=== PATIENT | female | born 2000 | race Caucasian/White ===

== ENCOUNTER 2022-10-09 14:54 | Observation (INO) | payer OTHER, MEDICAID, SELFPAY ==
[2022-10-09] VITALS (29 sets, daily range): BP systolic 107–131; BP diastolic 62–80; PULSE 72–85; RESP 16–27; TEMP 36.6–37.2; O2SAT 97–100; BMI 20.1
--- NOTE | 2022-10-09 15:17 | ED.GENADULT ---
HPI - General Adult General Chief complaint: Diabetic Problem Stated complaint: blood sugar is over 500 Time Seen by Provider: 10/09/22 14:58 Source: patient Mode of arrival: Ambulatory Limitations: no limitations History of Present Illness HPI narrative: Patient is a 21-year-old otherwise healthy female who was sent over from the walk-in clinic for evaluation of a new onset of diabetes. Patient states that since 09/29/22. She is had thirst, increased urination and fatigue. She denies chest pain, shortness of breath, abdominal pain, nausea vomiting, urinary symptoms, change in bowel habits. She is an increase in the mouth that she is urinating but has no dysuria. No vomiting. No skin rashes. No recent travel. No fevers. No source of infection identified. Related Data Home Medications Medication Instructions Recorded Confirmed calcium acetate(phosphat bind) 667 ##0 03/07/17 mg capsule cholecalciferol (vitamin D3) 25 30 ml sublingual ##0 03/07/17 mcg/spray(1,000 unit/spray) subling spray, susp methylphenidate HCl 20 mg tablet 20 mg PO ##0 03/07/17 (Ritalin) Previous Rx's Medication Instructions Recorded nortriptyline 10 mg capsule 10 mg PO HS #30 caps 03/07/17 blood sugar diagnostic (Accu-Chek #50 ea 10/09/22 Guide test strips) blood-glucose meter (Accu-Chek #1 ea 10/09/22 Guide Glucose Meter) insulin glargine 100 unit/mL (3 10 unit (0.1 mL) SUBCUT QPM #15 mL 10/09/22 mL) subcutaneous pen (Lantus Solostar U-100 Insulin) lancets 26 gauge #100 ea 10/09/22 metformin 500 mg tablet 500 mg PO BID #90 tabs 10/09/22 pen needle, diabetic 31 gauge x #50 ea 10/09/2204/12 (1st Tier Unifine Pentips) Allergies Allergy/AdvReac Type Severity Reaction Status Date / Time fluoxetine AdvReac Nightmare Verified 10/09/22 15:42 Review of Systems Review of Systems ROS Unobtainable: All systems reviewed & are unremarkable except as noted in HPI and below Patient History Social History Smoking Status: Never smoker Exam Initial Vital Signs Initial Vital Signs: Vital Signs Pulse Rate 79 10/09/22 15:13 Blood Pressure 131/63 10/09/22 15:13 Pulse Oximetry 98 10/09/22 15:13 Const General: cooperative, comfortable and No ill appearing HENNH Head: normal to inspection and normocephalic Resp Effort & Inspection: normal respiratory effort Auscultation: clear to auscultation bilaterally Cardio Rate: regular rate Rhythm: regular rhythm GI Inspection: normal to inspection Skin General: no rashes or lesions noted Neuro General: patient alert, patient awake, patient oriented x3 and moves all extremities Extrem General: capillary refill normal Course Orders Ordered: ED Orders 10/09/22 15:25 Complete Blood Count AUTO DIFF Stat Comprehensive Metabolic Panel Stat Ketones (Beta-Hydroxybutyrate) Stat Lipase Stat Magnesium Stat Phosphorous Stat Test Serum,Qual Stat 10/09/22 15:41 VBG [Venous Blood Gas] Stat 10/09/22 16:04 Urinalysis and Microscopic Stat Urine Culture Stat Urine Drug Screen, Rapid Stat Discontinued Medications Sodium Chloride (Normal Saline 0.9%) 1,000 mls @ 1,000 mls/hr IV BOLUS ONE Stop: 10/09/22 15:57 Last Infusion: 10/09/22 16:46 Dose: 0 mls/hr Documented By: Admin: 10/09/22 15:42 Dose: 1,000 mls/hr Documented By: SOL Sodium Chloride (Normal Saline 0.9%) 1,000 mls @ 1,000 mls/hr IV BOLUS ONE Stop: 10/09/22 17:47 Last Infusion: 10/09/22 18:16 Dose: 0 mls/hr Documented By: Admin: 10/09/22 17:12 Dose: 1,000 mls/hr Documented By: SOL Insulin Glargine (Insulin Glargine 100 Unit/Ml 3ml Pen) 10 unit SUBCUT BEDTIME [facility] Insulin Glargine (Insulin Glargine 100 Unit/Ml 3ml Pen) 10 unit SUBCUT NOW ONE Stop: 10/09/22 17:08 Last Admin: 10/09/22 17:26 Dose: 10 unit Documented By: SOL Co-signed By: AT Metformin HCl (Metformin Hcl 500 Mg Tablet) 500 mg PO NOW ONE Stop: 10/09/22 16:49 Last Admin: 10/09/22 17:12 Dose: 500 mg Documented By: SOL Vital Signs Vital signs: Vital Signs - 8 hr 10/09/22 15:15 10/09/22 15:13 10/09/22 15:13 Temperature 97.8 F Pulse Rate 72 79 Respiratory Rate 18 Blood Pressure 131/63 131/63 Pulse Oximetry 99 98 Oxygen Delivery Method Room Air 10/09/22 15:15 10/09/22 15:30 10/09/22 15:45 Temperature Pulse Rate 82 75 Respiratory Rate 27 H Blood Pressure 113/69 Pulse Oximetry 98 98 Oxygen Delivery Method 10/09/22 15:45 10/09/22 16:15 10/09/22 16:30 Temperature Pulse Rate 81 82 84 Respiratory Rate 25 H 16 17 Blood Pressure Pulse Oximetry 97 99 99 Oxygen Delivery Method Room Air 10/09/22 16:36 10/09/22 16:36 10/09/22 16:45 Temperature Pulse Rate 82 74 Respiratory Rate 24 19 Blood Pressure 112/72 Pulse Oximetry 99 100 Oxygen Delivery Method 10/09/22 17:16 10/09/22 17:16 10/09/22 17:30 Temperature Pulse Rate 75 73 Respiratory Rate Blood Pressure 113/73 Pulse Oximetry 100 99 Oxygen Delivery Method 10/09/22 17:45 10/09/22 18:00 Temperature Pulse Rate 84 75 Respiratory Rate Blood Pressure Pulse Oximetry 100 Oxygen Delivery Method Medical Decision Making Lab Data Lab results reviewed: Yes I reviewed the patient's lab results. 10/09/22 15:25 10/09/22 15:25 Labs: Lab Results 10/09/22 10/09/22 10/09/22 Range/Units 15:25 15:25 15:25 WBC 8.2 (4.5-11.0) X10^3/uL RBC 5.56 H (4.0-5.2) X10^6/uL Hgb 15.5 (12.0-16.0) g/dL Hct 45.5 (36-46) % MCV 81.7 (80-100) fL MCH 27.8 (26-34) PG MCHC 34.0 (30-36) % RDW 12.5 (11.6-14.8) % Plt Count 252 (150-400) X10^3/uL Neut % (Auto) 63.0 (50-75) % Lymph % (Auto) 27.8 (25-40) % [place] % (Auto) 6.6 (3-14) % Eos % (Auto) 2.2 (2-4) % Baso % (Auto) 0.4 (0-2) % Neut # (Auto) 5100 (6451-0527) /uL Lymph # (Auto) 2300 (8761-6064) /uL [place] # (Auto) 500 (0-900) /uL Eos # (Auto) 200 (0-450) /uL Baso # (Auto) 0 (0-100) /uL VBG pH (7.33-7.43) VBG pCO2 (45-50) mmHg VBG pO2 (35-45) mmHg VBG HCO3 (24-28) mmol/L VBG Total CO2 (24-29) mmol/L VBG O2 Saturation (70-75) % VBG Base Excess (0-4) mmol/L FiO2 Sodium 127 L (137-145) mmol/L Potassium 4.3 (3.4-5.1) mmol/L Chloride 94 L (98-107) mmol/L Carbon Dioxide 17 L (22-32) mmol/L BUN 15 (7-17) mg/dL Creatinine 0.66 (0.52-1.04) mg/dL Estimated GFR > 60 (>60) mL/min BUN/Creatinine Ratio 22.7 H (6-22) Glucose 726 H* (70-100) mg/dL Calcium 9.2 (8.4-10.2) mg/dL Phosphorus 3.6 L (4.5-5.5) mg/dL Magnesium 1.8 (1.6-2.3) mg/dL Total Bilirubin 0.8 (0.2-1.3) mg/dL AST 22 (14-36) IU/L ALT 35 H (<35) IU/L Alkaline Phosphatase 188 H (38-126) U/L Total Protein 7.7 (6.3-8.2) g/dL Albumin 4.6 (3.5-5.0) g/dL Globulin 3.1 (1.7-4.1) g/dL Albumin/Globulin Ratio 1.5 (1.0-2.8) Lipase 183 (23-300) U/L Serum , Qual Negative (Negative) Urine Color Urine Appearance Urine pH (4.5-8.0) Ur Specific [place] (1.000-1.035) Urine Protein (Negative) Urine Glucose (UA) (Negative) g/dL Urine Ketones (NEGATIVE) Urine Occult Blood (Negative) Urine Nitrate (Negative) Urine Bilirubin (NEGATIVE) Urine Urobilinogen (0.2) E.U./dL Ur Leukocyte Esterase (NEGATIVE) Urine RBC (0-5/HPF) Urine WBC (0-5/HPF) Ur Squamous Epith Cells (0-5/HPF) Urine Bacteria (None) U Opiates 300ng/mL cut (Negative) Ur Oxycodone Screen (Negative) Urine Methadone Screen (Negative) Ur Barbiturates Screen (Negative) U Tricyclic Antidepress (Negative) Ur Phencyclidine Scrn (Negative) Ur Amphetamines Screen (Negative) U Methamphetamines Scrn (Negative) Ur MDMA Scrn (Ecstasy) (Negative) U Benzodiazepines Scrn (Negative) Urine Cocaine Screen (Negative) U Marijuana (THC) Screen (Negative) Ketones 3.17 H (<0.27) mmol/L 10/09/22 10/09/22 10/09/22 Range/Units 15:41 16:04 16:04 WBC (4.5-11.0) X10^3/uL RBC (4.0-5.2) X10^6/uL Hgb (12.0-16.0) g/dL Hct (36-46) % MCV (80-100) fL MCH (26-34) PG MCHC (30-36) % RDW (11.6-14.8) % Plt Count (150-400) X10^3/uL Neut % (Auto) (50-75) % Lymph % (Auto) (25-40) % [place] % (Auto) (3-14) % Eos % (Auto) (2-4) % Baso % (Auto) (0-2) % Neut # (Auto) (9191-8677) /uL Lymph # (Auto) (5754-3496) /uL [place] # (Auto) (0-900) /uL Eos # (Auto) (0-450) /uL Baso # (Auto) (0-100) /uL VBG pH 7.34 (7.33-7.43) VBG pCO2 33.9 L (45-50) mmHg VBG pO2 51 H (35-45) mmHg VBG HCO3 19 L (24-28) mmol/L VBG Total CO2 19 L (24-29) mmol/L VBG O2 Saturation 84 H (70-75) % VBG Base Excess -7.0 L (0-4) mmol/L FiO2 20 Sodium (137-145) mmol/L Potassium (3.4-5.1) mmol/L Chloride (98-107) mmol/L Carbon Dioxide (22-32) mmol/L BUN (7-17) mg/dL Creatinine (0.52-1.04) mg/dL Estimated GFR (>60) mL/min BUN/Creatinine Ratio (6-22) Glucose (70-100) mg/dL Calcium (8.4-10.2) mg/dL Phosphorus (4.5-5.5) mg/dL Magnesium (1.6-2.3) mg/dL Total Bilirubin (0.2-1.3) mg/dL AST (14-36) IU/L ALT (<35) IU/L Alkaline Phosphatase (38-126) U/L Total Protein (6.3-8.2) g/dL Albumin (3.5-5.0) g/dL Globulin (1.7-4.1) g/dL Albumin/Globulin Ratio (1.0-2.8) Lipase (23-300) U/L Serum , Qual (Negative) Urine Color Yellow Urine Appearance Clear Urine pH 5.5 (4.5-8.0) Ur Specific [place] <=1.005 (1.000-1.035) Urine Protein Negative (Negative) Urine Glucose (UA) 3+ H (Negative) g/dL Urine Ketones 3+ H (NEGATIVE) Urine Occult Blood Trace-intact (Negative) Urine Nitrate Negative (Negative) Urine Bilirubin Negative (NEGATIVE) Urine Urobilinogen 0.2 (0.2) E.U./dL Ur Leukocyte Esterase Negative (NEGATIVE) Urine RBC 0-1/hpf (0-5/HPF) Urine WBC None seen (0-5/HPF) Ur Squamous Epith Cells None seen (0-5/HPF) Urine Bacteria None seen (None) U Opiates 300ng/mL cut Negative (Negative) Ur Oxycodone Screen Negative (Negative) Urine Methadone Screen Negative (Negative) Ur Barbiturates Screen Negative (Negative) U Tricyclic Antidepress Negative (Negative) Ur Phencyclidine Scrn Negative (Negative) Ur Amphetamines Screen Negative (Negative) U Methamphetamines Scrn Negative (Negative) Ur MDMA Scrn (Ecstasy) Negative (Negative) U Benzodiazepines Scrn Negative (Negative) Urine Cocaine Screen Negative (Negative) U Marijuana (THC) Screen Negative (Negative) Ketones (<0.27) mmol/L Urine Dip Bedside Urine Glucose 1000 mg/dl Bedside Urine Bilirubin - Negative Bedside Urine Ketone +++ 80 Urine Specific [place] 1.010 Bedside Urine Occult Blood - Negative Bedside Urine pH 6.0 Bedside Urine Protein - Negative Bedside Urine Urobilinogen - Negative Bedside Urine Nitrite - Negative Bedside Urine Leukocytes - Negative Esterase Point of care testing: Urine Dip Bedside Urine Glucose 1000 mg/dl Bedside Urine Bilirubin - Negative Bedside Urine Ketone +++ 80 Urine Specific [place] 1.010 Bedside Urine Occult Blood - Negative Bedside Urine pH 6.0 Bedside Urine Protein - Negative Bedside Urine Urobilinogen - Negative Bedside Urine Nitrite - Negative Bedside Urine Leukocytes - Negative Esterase MDM Narrative Medical decision making narrative: Patient is diabetic with hyperglycemia but is not in DKA. Her pH is 7.344. She does have ketones in her urine. Has been urinating quite a bit recently. Patient has been receiving fluids. She also received metformin and Lantus. No source of infection found. Her test is negative. She is in the process of obtaining a new primary doctor but does not have this currently. Metformin and Lantus and monitoring equipment has been ordered. Plan to be is to continue to hydrate until her blood sugar has improved. Care turned over to Dr. Valenzuela to follow-up and disposition. Discharge Plan Departure Patient Disposition: Home Clinical Impression: Diabetes mellitus Prescriptions: New metformin 500 mg tablet 500 mg PO BID Qty: 90 2RF insulin glargine [Lantus Solostar U-100 Insulin] 100 unit/mL (3 mL) insulin pen 10 unit SUBCUT QPM Qty: 15 2RF (DME) Accu-Chek Guide test strips Strip See Rx Instructions .Route Qty: 50 2RF Rx Instructions: As directed (DME) blood-glucose meter [Accu-Chek Guide Glucose Meter] Misc See Rx Instructions .Route Qty: 1 0RF Rx Instructions: As directed (DME) lancets 26 gauge misc See Rx Instructions .Route Qty: 100 2RF Rx Instructions: As directed (DME) pen needle, diabetic [1st Tier Unifine Pentips] 31 gauge x 1/4 needle See Rx Instructions .Route Qty: 50 2RF Rx Instructions: As directed No Action nortriptyline 10 MG capsule 10 mg PO HS Qty: 30 11RF calcium acetate(phosphat bind) 667 MG capsule Qty: 0 cholecalciferol (vitamin D3) 30 ML spray,suspension 30 ml Sublingual Qty: 0 methylphenidate HCl [Ritalin] 20 MG tablet 20 mg PO Qty: 0 Stand Alone Forms: Patient Portal/API
[2022-10-09 15:32] LABS: Add Manual Diff / Slide Review NO; Basophils Absolute Auto 0 /uL (0-100); Basophils Percent Auto 0.4 % (0-2); Eosinophils Absolute Auto 200 /uL (0-450); Eosinophils Percent Auto 2.2 % (2-4); Hematocrit 45.5 % (36-46); Hemoglobin 15.5 g/dL (12.0-16.0); Lymphocytes Absolute Auto 2300 /uL (1100-4500); Lymphocytes Percent Auto 27.8 % (25-40); Mean Corpuscular Hemoglobin 27.8 PG (26-34); Mean Corpuscular Volume 81.7 fL (80-100); Monocytes Absolute Auto 500 /uL (0-900); Monocytes Percent Auto 6.6 % (3-14); Neutrophils Absolute Auto 5100 /uL (1500-7000); Platelet Count 252 X10^3/uL (150-400); Red Blood Cell Count 5.56 X10^6/uL (4.0-5.2); Red Cell Distribution Width 12.5 % (11.6-14.8); White Blood Cell Count 8.2 X10^3/uL (4.5-11.0)
[2022-10-09] MEDS: SODIUM CHLORIDE 0.9% 1,000 ML 1000 ML IV ×3 (15:42→19:29)
[2022-10-09 15:51] LABS: Alanine Aminotransferase 35 IU/L (<35); Albumin 4.6 g/dL (3.5-5.0); Albumin Globulin Ratio 1.5 (1.0-2.8); Alkaline Phosphatase 188 U/L (38-126); Aspartate Aminotransferase 22 IU/L (14-36); BUN Creatinine Ratio 22.7 (6-22); Bilirubin Total 0.8 mg/dL (0.2-1.3); Blood Urea Nitrogen 15 mg/dL (7-17); Calcium 9.2 mg/dL (8.4-10.2); Carbon Dioxide 17 mmol/L (22-32); Chloride 94 mmol/L (98-107); Estimated Glomerular Filt Rate > 60 mL/min (>60); Globulin 3.1 g/dL (1.7-4.1); Lipase 183 U/L (23-300); Magnesium 1.8 mg/dL (1.6-2.3); Phosphorous 3.6 mg/dL (4.5-5.5); Potassium 4.3 mmol/L (3.4-5.1); Sodium 127 mmol/L (137-145); Total Protein 7.7 g/dL (6.3-8.2)
[2022-10-09 15:53] LABS: Pregnancy Test Serum,Qual Negative (Negative)
[2022-10-09 15:55] LABS: PCO2 VBG 33.9 mmHg (45-50); PO2 VBG 51 mmHg (35-45)
[2022-10-09 15:56] LABS: Fractionated Inspired Oxygen 20; HCO3 VBG 19 mmol/L (24-28); Oxygen Saturation VBG 84 % (70-75); Total CO2 VBG 19 mmol/L (24-29)
[2022-10-09 15:57] LABS: pH VBG 7.34 (7.33-7.43)
[2022-10-09 15:58] LABS: Ketones (Beta-Hydroxybutyrate) 3.17 mmol/L (<0.27)
[2022-10-09 16:00] LABS: HEMOLYSIS < 15 (0-50)
[2022-10-09 16:04] LABS: Glucose 726 mg/dL (70-100)
[2022-10-09 16:19] LABS: Appearance Urine UA CLEAR; Bilirubin Urine UA NEGATIVE (NEGATIVE); Color Urine UA YELLOW; Glucose Urine UA 3+ g/dL (Negative); Ketones Urine UA 3+ (NEGATIVE); Leukocyte Esterase Urine UA NEGATIVE (NEGATIVE); Nitrite Urine UA NEGATIVE (Negative); Occult Blood Urine UA TRACE-INTACT (Negative); Protein Urine UA NEGATIVE (Negative); Specific Gravity Urine UA <=1.005 (1.000-1.035); Urobilinogen Urine UA 0.2 E.U./dL (0.2)
[2022-10-09 16:21] LABS: pH Urine UA 5.5 (4.5-8.0)
[2022-10-09 16:24] LABS: Ur Creatinine Normal (Normal); Ur Specific Gravity Normal (Normal); Urine pH Normal (Normal)
[2022-10-09 16:25] LABS: UR Morphine/Opiate cutoff 300 Negative (Negative); Urine Amphetamines Negative (Negative); Urine Barbiturates Negative (Negative); Urine Benzodiazepines Negative (Negative); Urine Cocaine Negative (Negative); Urine MDMA Negative (Negative); Urine Methadone Negative (Negative); Urine Methamphetamines Negative (Negative); Urine Oxycodone Negative (Negative); Urine Phencyclidine Negative (Negative); Urine Tetrahydrocannabinol Negative (Negative); Urine Tricyclic Antidepressant Negative (Negative)
[2022-10-09 16:26] LABS: Bacteria Urine None Seen; RBC Urine 0-1/HPF (0-5/HPF); Squamous Epithelial Cell Urine None Seen (0-5/HPF); WBC Urine None Seen (0-5/HPF)
[2022-10-09] MEDS: METFORMIN HCL 500 MG TABLET PO (17:12)
[2022-10-09] MEDS: INSULIN GLARGINE 100 UNIT/ML 3ML PEN 10 UNIT SUBCUT (17:26)
--- NOTE | 2022-10-09 19:24 | PC.NURSE ---
Patient and close friend received extensive new diabetic education. Teaching of glucometer, insulin injections, signs and symptoms, etc. All of patients questions were answered. [facility] was called in regards to getting patient her new medications in a timely manner, pharmacist states meds will be ready tomorrow morning @ 1000.
[2022-10-09 19:28] LABS: BUN Creatinine Ratio 19.3 (6-22); Blood Urea Nitrogen 11 mg/dL (7-17); Calcium 8.1 mg/dL (8.4-10.2); Carbon Dioxide 18 mmol/L (22-32); Chloride 103 mmol/L (98-107); Estimated Glomerular Filt Rate > 60 mL/min (>60); Glucose 389 mg/dL (70-100); HEMOLYSIS < 15 (0-50); Sodium 134 mmol/L (137-145)
[2022-10-09] MEDS: INSULIN REGULAR 100 UNIT/ML 3 ML VIAL SUBCUT (20:13)
--- NOTE | 2022-10-09 20:28 | PC.NURSE ---
gave patient a turkey sandwich.
--- NOTE | 2022-10-09 21:04 | DI.RAD.S_ITS ---
PROCEDURE: XR CHEST 2V INDICATIONS: DKA TECHNIQUE: 2 views of the chest were acquired. COMPARISON: None. FINDINGS: Surgical changes and devices: None. Lungs and pleura: Lungs are clear. No pleural effusions or pneumothorax. Mediastinum: Mediastinal contours are normal. Heart size is normal. Bones and chest wall: No suspicious bony abnormalities. Soft tissues appear unremarkable. IMPRESSION: 1. No acute cardiopulmonary disease. Dictated by: Ion Araya M.D. on 10/09/2022 at 23:46 Approved by: Ion Araya M.D. on 10/09/2022 at 23:47
[2022-10-09] MEDS: INSULIN DRIP PREMIX 100 UNIT/100 ML PLAST..BAG 6 UNIT IV (21:13)
--- NOTE | 2022-10-09 22:01 | P.HP_ITS ---
History of Present Illness History of Present Illness Date Patient Seen: 10/09/22 Time Patient Seen: 21:19 Chief complaint: DKA, new onset DM type I Narrative: Jazmin Couch is a 21-year-old female with a medical history of remote TBI, takes no medications who presented to the ED with an initial blood sugar of 726 with complaints of polyuria, polydipsia, and fatigue. Patient was initially treated in the ED with 3 units of R insulin, 20 units of Lantus, and fluids. On admit patient denies chest pain, shortness in breath, headache, changes in vision, difficulty swallowing, speech impairment, weakness, numbness, tingling, difficulty with ambulation, recent falls, head injury, LOC, fever, body aches, chills, cough, recent exposure to illness, abdominal pain, nausea, vomiting, urinary incontinence/retention, dysuria, urgency, hematuria, bowel changes, con stipation, incontinence, melena, rashes, recent changes to medication, illness, injury, or trauma. Patient denies recent weight loss, blurry vision, family or personal history of autoimmune disease or liver Dz (Adopted). On admit vitals are stable, with the exception of mild tachypnea temp 97.8?, 129/80, 85, 25, 98% on room air. VBG is pH 7.34, pCO2 33.9, PO2 51, HC03 19, TCO2 19, O2 saturation 84%, BE -7, FiO2 20. Sodium 134, bicarb 18. Creatinine BUN and GFR are normal, potassium 4. Initial glucose 726, repeat 1910:. 389. Anion gap: 16, serum ketones 3.17, calcium 8.1, phosphorus 3.6, magnesium 1.8, alk-phos 188. Urine is negative for infection positive glucose 3+, ketones 3+-culture pending. HCG negative, tox screen negative. Patient admitted for DKA/new onset type 1 diabetes. [facility] Medical History (Updated 10/09/22 @ 22:59 by CARLOTA Gorman) ADHD Closed TBI (traumatic brain injury) Surgical History (Updated 10/09/22 @ 22:59 by CARLOTA Gorman) History of wisdom tooth extraction Family History (Updated 10/09/22 @ 22:59 by CARLOTA Gorman) Other Adopted Social History (Updated 10/09/22 @ 22:59 by Sadie Leon [facility]) household members: family Smoking Status: Never smoker alcohol intake: never substance use type: does not use Meds Home Medications and Allergies Home Medications Medication Instructions Recorded Confirmed Type calcium acetate(phosphat bind) 667 ##0 03/07/17 History mg capsule cholecalciferol (vitamin D3) 25 30 ml sublingual ##0 03/07/17 History mcg/spray(1,000 unit/spray) subling spray, susp methylphenidate HCl 20 mg tablet 20 mg PO ##0 03/07/17 History (Ritalin) nortriptyline 10 mg capsule 10 mg PO HS #30 caps 03/07/17 Rx blood sugar diagnostic (Accu-Chek #50 ea 10/09/22 Rx Guide test strips) blood-glucose meter (Accu-Chek #1 ea 10/09/22 Rx Guide Glucose Meter) insulin glargine 100 unit/mL (3 10 unit (0.1 mL) SUBCUT QPM #15 mL 10/09/22 Rx mL) subcutaneous pen (Lantus Solostar U-100 Insulin) lancets 26 gauge #100 ea 10/09/22 Rx metformin 500 mg tablet 500 mg PO BID #90 tabs 10/09/22 Rx pen needle, diabetic 31 gauge x #50 ea 10/09/22 Rx 1/4 (1st Tier Unifine Pentips) Allergies Allergy/AdvReac Type Severity Reaction Status Date / Time fluoxetine AdvReac Nightmare Verified 10/09/22 15:42 Review of Systems Review of Systems Narrative: All 12 point systems reviewed with the patient and are negative except otherwise documented. Exam Vital Signs (past 8 hours): - 10/09/22 15:15 10/09/22 15:13 10/09/22 15:13 Temperature 97.8 F Pulse Rate 72 79 Respiratory Rate 18 Blood Pressure 131/63 131/63 Pulse Oximetry 99 98 Oxygen Delivery Method Room Air 10/09/22 15:15 10/09/22 15:30 10/09/22 15:45 Temperature Pulse Rate 82 75 Respiratory Rate 27 H Blood Pressure 113/69 Pulse Oximetry 98 98 Oxygen Delivery Method 10/09/22 15:45 10/09/22 16:15 10/09/22 16:30 Temperature Pulse Rate 81 82 84 Respiratory Rate 25 H 16 17 Blood Pressure Pulse Oximetry 97 99 99 Oxygen Delivery Method Room Air 10/09/22 16:36 10/09/22 16:36 10/09/22 16:45 Temperature Pulse Rate 82 74 Respiratory Rate 24 19 Blood Pressure 112/72 Pulse Oximetry 99 100 Oxygen Delivery Method 10/09/22 17:16 10/09/22 17:16 10/09/22 17:30 Temperature Pulse Rate 75 73 Respiratory Rate Blood Pressure 113/73 Pulse Oximetry 100 99 Oxygen Delivery Method 10/09/22 17:45 10/09/22 18:00 10/09/22 19:15 Temperature Pulse Rate 84 75 75 Respiratory Rate Blood Pressure Pulse Oximetry 100 100 Oxygen Delivery Method Room Air 10/09/22 19:30 10/09/22 19:45 10/09/22 20:02 Temperature Pulse Rate 73 75 73 Respiratory Rate Blood Pressure Pulse Oximetry 100 100 99 Oxygen Delivery Method 10/09/22 20:03 10/09/22 20:03 10/09/22 20:11 Temperature Pulse Rate 73 81 Respiratory Rate 19 Blood Pressure 117/79 Pulse Oximetry 100 98 Oxygen Delivery Method 10/09/22 20:11 10/09/22 20:15 10/09/22 20:30 Temperature Pulse Rate 85 Respiratory Rate 25 H Blood Pressure 129/80 120/68 Pulse Oximetry 98 Oxygen Delivery Method Room Air 10/09/22 20:30 10/09/22 20:45 10/09/22 21:00 Temperature Pulse Rate 79 82 Respiratory Rate 17 16 Blood Pressure 110/63 Pulse Oximetry 100 99 Oxygen Delivery Method 10/09/22 21:00 10/09/22 21:15 10/09/22 21:30 Temperature Pulse Rate 85 81 Respiratory Rate 18 17 Blood Pressure 107/69 Pulse Oximetry 99 99 Oxygen Delivery Method 10/09/22 21:30 10/09/22 21:45 Temperature Pulse Rate 79 80 Respiratory Rate 21 20 Blood Pressure Pulse Oximetry 98 98 Oxygen Delivery Method Oxygen Delivery Method Room Air Narrative Exam Narrative: General: Patient is a well-developed, well-nourished in no distress at this time. HEENT: Normocephalic, atraumatic, extraocular muscles intact, oral pharynx is clear and mucous membranes are moist. Neck is supple and symmetric, trachea is midline, no adenopathy, no thyroid enlargement, nontender, no masses palpated. Negative for JVD Chest: Normal AP diameter and contour without kyphoscoliosis, Equal chest rise without nasal flaring, retractions, tachypneic or labored breathing. Lungs: Auscultation of all lung sibley are clear without adventitious sounds, wheezes, rhonchi, or rales. Cardio: regular rate and rhythm without murmur, rubs, or gallops, no carotid bruit, no cardiac pulsations present. Abdomen: Soft nontender, negative for organomegaly, or masses. Bowel sounds are present in all 4 quadrants without guarding or rebound, no CVA tenderness. Musculoskeletal: Muscle strength and tone are equal, no deformity, crepitus, effusions, cyanosis, clubbing or edema present. Full range of motion intact radial and pedal pulses are normal. Skin: Warm dry and intact without rashes, ulcerations or petechiae. Neuro: Alert and orientated x3, moves all extremities, sensation to touch intact, no gross deficits noted of cranial nerves. Psych: Patient has a well-kept appearance, appropriate affect, mental status attitude thought context and judgment are appropriate for age. Objective Labs 10/09/22 15:25 10/09/22 19:10 Labs: Laboratory Results - last 24 hr 10/09/22 10/09/22 10/09/22 15:25 15:25 15:25 WBC 8.2 RBC 5.56 H Hgb 15.5 Hct 45.5 MCV 81.7 MCH 27.8 MCHC 34.0 RDW 12.5 Plt Count 252 Neut % (Auto) 63.0 Lymph % (Auto) 27.8 [place] % (Auto) 6.6 Eos % (Auto) 2.2 Baso % (Auto) 0.4 Neut # (Auto) 5100 Lymph # (Auto) 2300 [place] # (Auto) 500 Eos # (Auto) 200 Baso # (Auto) 0 VBG pH VBG pCO2 VBG pO2 VBG HCO3 VBG Total CO2 VBG O2 Saturation VBG Base Excess FiO2 Sodium 127 L Potassium 4.3 Chloride 94 L Carbon Dioxide 17 L BUN 15 Creatinine 0.66 Estimated GFR > 60 BUN/Creatinine Ratio 22.7 H Glucose 726 H* Calcium 9.2 Phosphorus 3.6 L Magnesium 1.8 Total Bilirubin 0.8 AST 22 ALT 35 H Alkaline Phosphatase 188 H Total Protein 7.7 Albumin 4.6 Globulin 3.1 Albumin/Globulin Ratio 1.5 Lipase 183 Serum , Qual Negative Urine Color Urine Appearance Urine pH Ur Specific [place] Urine Protein Urine Glucose (UA) Urine Ketones Urine Occult Blood Urine Nitrate Urine Bilirubin Urine Urobilinogen Ur Leukocyte Esterase Urine RBC Urine WBC Ur Squamous Epith Cells Urine Bacteria U Opiates 300ng/mL cut Ur Oxycodone Screen Urine Methadone Screen Ur Barbiturates Screen U Tricyclic Antidepress Ur Phencyclidine Scrn Ur Amphetamines Screen U Methamphetamines Scrn Ur MDMA Scrn (Ecstasy) U Benzodiazepines Scrn Urine Cocaine Screen U Marijuana (THC) Screen Ketones 3.17 H 10/09/22 10/09/22 10/09/22 15:41 16:04 16:04 WBC RBC Hgb Hct MCV MCH MCHC RDW Plt Count Neut % (Auto) Lymph % (Auto) [place] % (Auto) Eos % (Auto) Baso % (Auto) Neut # (Auto) Lymph # (Auto) [place] # (Auto) Eos # (Auto) Baso # (Auto) VBG pH 7.34 VBG pCO2 33.9 L VBG pO2 51 H VBG HCO3 19 L VBG Total CO2 19 L VBG O2 Saturation 84 H VBG Base Excess -7.0 L FiO2 20 Sodium Potassium Chloride Carbon Dioxide BUN Creatinine Estimated GFR BUN/Creatinine Ratio Glucose Calcium Phosphorus Magnesium Total Bilirubin AST ALT Alkaline Phosphatase Total Protein Albumin Globulin Albumin/Globulin Ratio Lipase Serum , Qual Urine Color Yellow Urine Appearance Clear Urine pH 5.5 Ur Specific [place] <=1.005 Urine Protein Negative Urine Glucose (UA) 3+ H Urine Ketones 3+ H Urine Occult Blood Trace-intact Urine Nitrate Negative Urine Bilirubin Negative Urine Urobilinogen 0.2 Ur Leukocyte Esterase Negative Urine RBC 0-1/hpf Urine WBC None seen Ur Squamous Epith Cells None seen Urine Bacteria None seen U Opiates 300ng/mL cut Negative Ur Oxycodone Screen Negative Urine Methadone Screen Negative Ur Barbiturates Screen Negative U Tricyclic Antidepress Negative Ur Phencyclidine Scrn Negative Ur Amphetamines Screen Negative U Methamphetamines Scrn Negative Ur MDMA Scrn (Ecstasy) Negative U Benzodiazepines Scrn Negative Urine Cocaine Screen Negative U Marijuana (THC) Screen Negative Ketones 10/09/22 19:10 WBC RBC Hgb Hct MCV MCH MCHC RDW Plt Count Neut % (Auto) Lymph % (Auto) [place] % (Auto) Eos % (Auto) Baso % (Auto) Neut # (Auto) Lymph # (Auto) [place] # (Auto) Eos # (Auto) Baso # (Auto) VBG pH VBG pCO2 VBG pO2 VBG HCO3 VBG Total CO2 VBG O2 Saturation VBG Base Excess FiO2 Sodium 134 L Potassium 4.0 Chloride 103 Carbon Dioxide 18 L BUN 11 Creatinine 0.57 Estimated GFR > 60 BUN/Creatinine Ratio 19.3 Glucose 389 H D Calcium 8.1 L Phosphorus Magnesium Total Bilirubin AST ALT Alkaline Phosphatase Total Protein Albumin Globulin Albumin/Globulin Ratio Lipase Serum , Qual Urine Color Urine Appearance Urine pH Ur Specific [place] Urine Protein Urine Glucose (UA) Urine Ketones Urine Occult Blood Urine Nitrate Urine Bilirubin Urine Urobilinogen Ur Leukocyte Esterase Urine RBC Urine WBC Ur Squamous Epith Cells Urine Bacteria U Opiates 300ng/mL cut Ur Oxycodone Screen Urine Methadone Screen Ur Barbiturates Screen U Tricyclic Antidepress Ur Phencyclidine Scrn Ur Amphetamines Screen U Methamphetamines Scrn Ur MDMA Scrn (Ecstasy) U Benzodiazepines Scrn Urine Cocaine Screen U Marijuana (THC) Screen Ketones Assessment & Plan Assessment & Plan narrative: Piper Couch is a 21-year-old female with a medical history remote TBI takes no medications, BMI 20, who presented to the ED with polyuria, polydipsia, extreme fatigue, in mild DKA, new onset type 1 diabetes. admitted to the ICU on an insulin drip for mild DKA, with new onet Type 1 diabetes. DKA, in the setting of type 1 diabetes, acute new onset, present on admission * admitted to the ICU on an insulin drip * Under DKA/diabetes protocol * VBG is pH 7.34, pCO2 33.9, PO2 51, HC03 19, TCO2 19, O2 saturation 84%, BE - 7, FiO2 20. * Sodium 134, bicarb 18. Potassium 4 * Creatinine BUN and GFR are normal. * glucose 726, repeat 1910:. 389. Anion gap: 16, serum ketones 3.17, calcium 8.1,alk-phos 188. * Urine is negative for infection positive glucose 3+, ketones 3+-culture pending. * Ordered lactate, TSH/T4, A1c, serum osmolality, BEV-65, IgA, Tiss IgA, salicylate, GGT, EKG, CXR. * Patient education regarding insulin-dependent type 1 diabetes * Patient education handouts: DM type 1, DKA, insulin Tx, calculating insulin, diet, BS monitoring, infections, sick day monitoring & plan. * Patient does not have a PCP-placed DENTAL EQUIPMENT REPAIRER consult * Will require close follow-up with the PCP on discharge. * Estimated TDD: 30units per day, 1800 jose c diet ISF 1:60, I:C ratio 1:15 Malnutrition,moderate, acute on chronic, likely secondary to DM type 1 onset, present on admission * As evidence by BMI 20.1 * patient's malnutrition places them at high risk for medical and surgical complications in relation to acute illness/chronic illness. This increases the difficulty in complexity of medical management and increases the chances poor outcomes such as mortality and morbidity as well as impaired wound healing, and immune suppression. * dietary consult ordered to evaluate and implement steps to improve caloric intake and nutrition. Code status: Full Surrogate decision maker: Yanni Maikelcrow Mother DVT/VTE prophylaxis: Lovenox and SCDs Disposition: Patient admitted to the ICU OBS on insulin drip for onset of DKA/new diabetes type 1 onset, expected length of stay not to exceed 2 midnights. I have utilized all available immediate resources to obtain, update, or review the patient's current medications. I confirmed that the patient's advanced care plan is present, Code status is documented and/or surrogate decision maker is listed in the patient's medical record. I have personally reviewed patient's chart notes from PCP, specialists, diagnostic imaging, and laboratory results.
[2022-10-09 22:02] LABS: Lactate (Lactic Acid) 0.9 mmol/L (0.7-2.1)
[2022-10-09 22:45] LABS: Gamma Glutamyl Transpeptidase 13 U/L (12-43); Salicylate < 1.0 mg/dL (<20)
[2022-10-09] MEDS: DEXTROSE 5%-0.45% NS 1,000 ML 75 ML IV (22:48)
[2022-10-09 23:07] LABS: TSH w/ Reflex to FT4 1.22 uIU/mL (0.47-4.68)
[2022-10-09] MEDS: DEXTROSE 10 % IN WATER 1,000 ML 100 ML IV (23:33)
[2022-10-10] VITALS (23 sets, daily range): BP systolic 78–115; BP diastolic 46–67; PULSE 66–94; RESP 14–29; TEMP 36.9–37.2; O2SAT 97–99
[2022-10-10 00:05] LABS: MRSA (Nasal) PCR Not Detected (Not Detect)
[2022-10-10 01:43] LABS: BUN Creatinine Ratio 17.7 (6-22); Blood Urea Nitrogen 11 mg/dL (7-17); Calcium 7.9 mg/dL (8.4-10.2); Carbon Dioxide 22 mmol/L (22-32); Chloride 107 mmol/L (98-107); Estimated Glomerular Filt Rate > 60 mL/min (>60); Glucose 199 mg/dL (70-100); HEMOLYSIS < 15 (0-50); Potassium 3.1 mmol/L (3.4-5.1); Sodium 135 mmol/L (137-145)
[2022-10-10] MEDS: POTASSIUM CHLORIDE 20 MEQ TAB 40 MEQ PO (02:59)
[2022-10-10 03:41] LABS: x Labcorp Estim. Avg Glu (eAG) 235 mg/dL (.); x Labcorp Hemoglobin A1c 9.8 % (4.8-5.6)
[2022-10-10 05:12] LABS: Add Manual Diff / Slide Review NO; Basophils Absolute Auto 100 /uL (0-100); Basophils Percent Auto 0.5 % (0-2); Eosinophils Absolute Auto 300 /uL (0-450); Eosinophils Percent Auto 2.5 % (2-4); Hematocrit 40.2 % (36-46); Lymphocytes Absolute Auto 4400 /uL (1100-4500); Lymphocytes Percent Auto 38.8 % (25-40); Mean Corpuscular HGB Conc 34.8 % (30-36); Mean Corpuscular Hemoglobin 27.3 PG (26-34); Mean Corpuscular Volume 78.4 fL (80-100); Monocytes Absolute Auto 700 /uL (0-900); Monocytes Percent Auto 5.9 % (3-14); Neutrophils Absolute Auto 5900 /uL (1500-7000); Neutrophils Percent Auto 52.3 % (50-75); Platelet Count 259 X10^3/uL (150-400); Red Blood Cell Count 5.13 X10^6/uL (4.0-5.2); Red Cell Distribution Width 12.6 % (11.6-14.8); White Blood Cell Count 11.2 X10^3/uL (4.5-11.0)
[2022-10-10 05:15] LABS: PCO2 VBG 36.4 mmHg (45-50); PO2 VBG 57 mmHg (35-45); pH VBG 7.35 (7.33-7.43)
[2022-10-10 05:16] LABS: Fractionated Inspired Oxygen 21; HCO3 VBG 20 mmol/L (24-28); Oxygen Saturation VBG 88 % (70-75); Total CO2 VBG 21 mmol/L (24-29)
[2022-10-10 05:23] LABS: BUN Creatinine Ratio 17.9 (6-22); Blood Urea Nitrogen 10 mg/dL (7-17); Calcium 8.3 mg/dL (8.4-10.2); Carbon Dioxide 22 mmol/L (22-32); Chloride 107 mmol/L (98-107); Estimated Glomerular Filt Rate > 60 mL/min (>60); Glucose 60 mg/dL (70-100); HEMOLYSIS < 15 (0-50); Potassium 3.5 mmol/L (3.4-5.1); Sodium 137 mmol/L (137-145)
[2022-10-10 05:29] LABS: Cholesterol 130 mg/dL (140-199); HDL Cholesterol 41 mg/dL (40-60); LDL Cholesterol Calculated 70 mg/dL (<100); Magnesium 1.6 mg/dL (1.6-2.3); Triglycerides 96 mg/dL (35-150)
--- NOTE | 2022-10-10 06:45 | PC.NURSE ---
Ordered by hospitalist to stop insulin drip, as well as continuous fluids. Pt last blood sugar 166 per finger stick.
--- NOTE | 2022-10-10 08:09 | DIET.CONS2 ---
Dietary Inpatient Consultation Note Admission Date: 10/09/2022 21:29 RD available morning of 10/11 for additional DM education as needed. DM outpatient education should be ordered by PCP once obtained. All outpatient DM education at being diverted to [facility] at this time due to staffing. Diet: 10/10/22 Breakfast Carbohydrate Consistent Diet Diet Modifications: Carbohydrate level: Small (2 CHO) Bedtime snack: Yes Reflex DM orders: No Electronically Signed by: Maral Resendiz 10/10/22 08:09 Clinical Dietitian [address] [address]
--- NOTE | 2022-10-10 09:29 | CM.DANOTE ---
DCP Assessment Patient is a 21yo female here with new onset diabetes and presumed mild DKA (ER Report). PCP: none at this time. TOOL LIAISON provided patient with a list of 15 PCPs in her area that accept her insurance and are accepting new patients. Payer: [employer] and Medicaid TOOL LIAISON reviewed EMR. From nursing staff, likely will just need PCP options from this team upon d/c. From provider, likely d/c today after monitoring sugars. TOOL LIAISON entered room and introduced self and role. Patient was resting in bed and appeared A/Ox4. Patient was accompanied by spouse Aakash and friend Adelita. Patient lives with friend Adelita in [place]. Patient is independent at baseline and drives. Patient asked that her emergency contacts be her mother Yanni ([phone]) or her grandmother Sabrina ([phone]). TOOL LIAISON provided patient with a list of 15 PCPs in her area that accept her insurance and are accepting new patients. Patient accepted list and appeared grateful. Patient asked TOOL LIAISON various medical questions. TOOL LIAISON acted within area of competency and referred patient questions to nursing staff. Plan: patient will likely d/c home later today if medically stable. transport with friend in POV. CM team will continue to follow with needs. NISREEN Robison Discharge Planning/Care Management CM Discharge Assessment Start: 10/10/22 09:26 Freq: Status: Active Protocol: Document 10/10/22 09:27 (Rec: 10/10/22 09:28 [id number]) Discharge Planning Assessment Assigned Direct Mail Manager NISREEN Chapman DPOA/Assigned Designee Name Yanni George (mother) Contact Information [phone] Advance Directives? No History Provided By Patient,Medical Record Prior Living Arrangements House Household Members family Comment Friend Adelita Type of transporation used prior to Drives own vehicle admit Independent with ADL's Yes Is patient alert and oriented? Yes Barriers to Discharge No Transportation Arrangement friend or spouse Whiteboard Updated in Patient Room with Yes name and ext. # of Direct Mail Manager Review Status In Process Next Review Type Continued Stay Review
[2022-10-10] MEDS: INSULIN LISPRO 100 UNIT/ML 3ML VIAL SUBCUT (12:08)
--- NOTE | 2022-10-10 13:13 | PM.DS.1 ---
History of Present Illness History of Present Illness Date Patient Seen: 10/10/22 Time Patient Seen: 13:13 Chief complaint: DKA, new onset DM type I Narrative: Per admitting provider, Jazmin Couch is a 21-year-old female with a medical history of remote TBI, takes no medications who presented to the ED with an initial blood sugar of 726 with complaints of polyuria, polydipsia, and fatigue. Patient was initially treated in the ED with 3 units of R insulin, 20 units of Lantus, and fluids. On admit patient denies chest pain, shortness in breath, headache, changes in vision, difficulty swallowing, speech impairment, weakness, numbness, tingling, difficulty with ambulation, recent falls, head injury, LOC, fever, body aches, chills, cough, recent exposure to illness, abdominal pain, nausea, vomiting, urinary incontinence/retention, dysuria, urgency, hematuria, bowel changes, constipation, incontinence, melena, rashes, recent changes to medication, illness, injury, or trauma. Patient denies recent weight loss, blurry vision, family or personal history of autoimmune disease or liver Dz (Adopted). On admit vitals are stable, with the exception of mild tachypnea temp 97.8?, 129/80, 85, 25, 98% on room air. VBG is pH 7.34, pCO2 33.9, PO2 51, HC03 19, TCO2 19, O2 saturation 84%, BE -7, FiO2 20. Sodium 134, bicarb 18. Creatinine BUN and GFR are normal, potassium 4. Initial glucose 726, repeat 1910:. 389. Anion gap: 16, serum ketones 3.17, calcium 8.1, phosphorus 3.6, magnesium 1.8, alk-phos 188. Urine is negative for infection positive glucose 3+, ketones 3+-culture pending. HCG negative, tox screen negative. Patient admitted for DKA/new onset type 1 diabetes. Discharge Providers Provider Date of admission: 10/09/22 21:29 Discharge Date: 10/10/22 Consults: 10/09/22 21:04 Consult to Dietitian, Adult Urgent Comment: Reason For Exam: New DM1 dx 10/09/22 21:14 Consult to PRINCIPAL WEB DEVELOPER - [employer]enting Machine Operator Stat Comment: PRINCIPAL WEB DEVELOPER Consult needed for:: [facility] Res Need 10/09/22 21:18 Consult to Discharge Planning Routine Comment: New type 1 DM Discharge provider: Main Gardner DO Summary Hospital Course Discharge Diagnosis: DKA, in the setting of type 1 diabetes, acute new onset, present on admission Hospital Course: This is a 30 year old female with no significant PMH who presented with polyuria and polydipsia, and fatigue. She was admitted with very mild DKA. A1c was 9.8%. She was started on an insulin infusion after being given 10 U of Lantus. AG closed quickly (only mildly elevated at 16) and had minimal acidosis as well. She was quickly taken off of the insulin infusion, and with improved glucose levels the following afternoon she was discharged home. She has a number of close resources including a family member with type 1 diabetes, but unfortunately no primary care provider at this time. Insulin / C-peptide levels were ordered and BEV-65 Abs are pending as well at the time of discharge for further evaluation into whether this would be a type 1 or type 2 presentation though suspect Type 1. She was given education on carb counting, long vs short acting insulins. She is interested already in persuing an insulin pump though that will need to be done through an endocrine clinic. She was instructed to start 10 units of Lantus nightly for now, with meal time insulin based on her carbohydrate levels. Initially recommend 1U per 15 g of carbohydrates, and a correction of 1 U of insulin for every 50 points of blood sugar elevation above 150. She was briefly instructed on how to make adjustments but was also interested in reading ,think like a pancreas which is a great resource as well. She is currently in the process of finding a primary care provider, ideally this will happen before the end of the week to get needed prescriptions and adjustments in her diabetes management over the coming days to weeks after her initial diagnosis. Time Spent with Patient Time spent: Greater than 30 minutes Exam Vital Signs (past 8 hours): - 10/10/22 06:00 10/10/22 06:00 10/10/22 06:02 Temperature Pulse Rate 71 Respiratory Rate 14 Blood Pressure 78/51 L 88/49 L Pulse Oximetry 98 Oxygen Delivery Method 10/10/22 06:02 10/10/22 06:19 10/10/22 06:19 Temperature Pulse Rate 68 78 Respiratory Rate 14 16 Blood Pressure 90/67 Pulse Oximetry 98 98 Oxygen Delivery Method 10/10/22 06:23 10/10/22 06:30 10/10/22 06:45 Temperature Pulse Rate 74 79 76 Respiratory Rate 17 14 15 Blood Pressure Pulse Oximetry 98 98 98 Oxygen Delivery Method 10/10/22 07:00 10/10/22 07:00 10/10/22 07:15 Temperature Pulse Rate 77 81 Respiratory Rate 20 19 Blood Pressure 93/56 L Pulse Oximetry 99 97 Oxygen Delivery Method 10/10/22 08:32 10/10/22 09:07 Temperature 98.9 F Pulse Rate Respiratory Rate Blood Pressure Pulse Oximetry Oxygen Delivery Method Room Air Oxygen Delivery Method Room Air Narrative Exam Narrative: General: Patient is a well-developed, well-nourished in no distress at this time. Chest: Normal AP diameter and contour without kyphoscoliosis, Equal chest rise without nasal flaring, retractions, tachypneic or labored breathing. Cardio: regular rate and rhythm Skin: Warm dry and intact without rashes, ulcerations or petechiae. Neuro: Alert and orientated x3, moves all extremities, sensation to touch intact, no gross deficits noted of cranial nerves. Psych: Patient has a well-kept appearance, appropriate affect, mental status attitude thought context and judgment are appropriate for age. Objective Labs 10/10/22 04:57 10/10/22 04:57 Labs: Laboratory Results - last 24 hr 10/09/22 10/09/22 10/09/22 15:25 15:25 15:25 WBC 8.2 RBC 5.56 H Hgb 15.5 Hct 45.5 MCV 81.7 MCH 27.8 MCHC 34.0 RDW 12.5 Plt Count 252 Neut % (Auto) 63.0 Lymph % (Auto) 27.8 [place] % (Auto) 6.6 Eos % (Auto) 2.2 Baso % (Auto) 0.4 Neut # (Auto) 5100 Lymph # (Auto) 2300 [place] # (Auto) 500 Eos # (Auto) 200 Baso # (Auto) 0 VBG pH VBG pCO2 VBG pO2 VBG HCO3 VBG Total CO2 VBG O2 Saturation VBG Base Excess FiO2 Sodium 127 L Potassium 4.3 Chloride 94 L Carbon Dioxide 17 L BUN 15 Creatinine 0.66 Estimated GFR > 60 BUN/Creatinine Ratio 22.7 H Glucose 726 H* Hgb A1c (Ref Lab) Estim Average Glucose Lactate Calcium 9.2 Phosphorus 3.6 L Magnesium 1.8 Total Bilirubin 0.8 GGT AST 22 ALT 35 H Alkaline Phosphatase 188 H Total Protein 7.7 Albumin 4.6 Globulin 3.1 Albumin/Globulin Ratio 1.5 Triglycerides Cholesterol LDL Cholesterol, Calc HDL Cholesterol Lipase 183 TSH Serum , Qual Negative Urine Color Urine Appearance Urine pH Ur Specific [place] Urine Protein Urine Glucose (UA) Urine Ketones Urine Occult Blood Urine Nitrate Urine Bilirubin Urine Urobilinogen Ur Leukocyte Esterase Urine RBC Urine WBC Ur Squamous Epith Cells Urine Bacteria Nasal Screen MRSA (PCR) Salicylates U Opiates 300ng/mL cut Ur Oxycodone Screen Urine Methadone Screen Ur Barbiturates Screen U Tricyclic Antidepress Ur Phencyclidine Scrn Ur Amphetamines Screen U Methamphetamines Scrn Ur MDMA Scrn (Ecstasy) U Benzodiazepines Scrn Urine Cocaine Screen U Marijuana (THC) Screen Ketones 3.17 H 10/09/22 10/09/22 10/09/22 15:25 15:41 16:04 WBC RBC Hgb Hct MCV MCH MCHC RDW Plt Count Neut % (Auto) Lymph % (Auto) [place] % (Auto) Eos % (Auto) Baso % (Auto) Neut # (Auto) Lymph # (Auto) [place] # (Auto) Eos # (Auto) Baso # (Auto) VBG pH 7.34 VBG pCO2 33.9 L VBG pO2 51 H VBG HCO3 19 L VBG Total CO2 19 L VBG O2 Saturation 84 H VBG Base Excess -7.0 L FiO2 20 Sodium Potassium Chloride Carbon Dioxide BUN Creatinine Estimated GFR BUN/Creatinine Ratio Glucose Hgb A1c (Ref Lab) 9.8 H Estim Average Glucose 235 Lactate Calcium Phosphorus Magnesium Total Bilirubin GGT AST ALT Alkaline Phosphatase Total Protein Albumin Globulin Albumin/Globulin Ratio Triglycerides Cholesterol LDL Cholesterol, Calc HDL Cholesterol Lipase TSH Serum , Qual Urine Color Urine Appearance Urine pH Ur Specific [place] Urine Protein Urine Glucose (UA) Urine Ketones Urine Occult Blood Urine Nitrate Urine Bilirubin Urine Urobilinogen Ur Leukocyte Esterase Urine RBC Urine WBC Ur Squamous Epith Cells Urine Bacteria Nasal Screen MRSA (PCR) Salicylates U Opiates 300ng/mL cut Negative Ur Oxycodone Screen Negative Urine Methadone Screen Negative Ur Barbiturates Screen Negative U Tricyclic Antidepress Negative Ur Phencyclidine Scrn Negative Ur Amphetamines Screen Negative U Methamphetamines Scrn Negative Ur MDMA Scrn (Ecstasy) Negative U Benzodiazepines Scrn Negative Urine Cocaine Screen Negative U Marijuana (THC) Screen Negative Ketones 10/09/22 10/09/22 10/09/22 16:04 19:10 21:42 WBC RBC Hgb Hct MCV MCH MCHC RDW Plt Count Neut % (Auto) Lymph % (Auto) [place] % (Auto) Eos % (Auto) Baso % (Auto) Neut # (Auto) Lymph # (Auto) [place] # (Auto) Eos # (Auto) Baso # (Auto) VBG pH VBG pCO2 VBG pO2 VBG HCO3 VBG Total CO2 VBG O2 Saturation VBG Base Excess FiO2 Sodium 134 L Potassium 4.0 Chloride 103 Carbon Dioxide 18 L BUN 11 Creatinine 0.57 Estimated GFR > 60 BUN/Creatinine Ratio 19.3 Glucose 389 H D Hgb A1c (Ref Lab) Estim Average Glucose Lactate 0.9 Calcium 8.1 L Phosphorus Magnesium Total Bilirubin GGT AST ALT Alkaline Phosphatase Total Protein Albumin Globulin Albumin/Globulin Ratio Triglycerides Cholesterol LDL Cholesterol, Calc HDL Cholesterol Lipase TSH Serum , Qual Urine Color Yellow Urine Appearance Clear Urine pH 5.5 Ur Specific [place] <=1.005 Urine Protein Negative Urine Glucose (UA) 3+ H Urine Ketones 3+ H Urine Occult Blood Trace-intact Urine Nitrate Negative Urine Bilirubin Negative Urine Urobilinogen 0.2 Ur Leukocyte Esterase Negative Urine RBC 0-1/hpf Urine WBC None seen Ur Squamous Epith Cells None seen Urine Bacteria None seen Nasal Screen MRSA (PCR) Salicylates U Opiates 300ng/mL cut Ur Oxycodone Screen Urine Methadone Screen Ur Barbiturates Screen U Tricyclic Antidepress Ur Phencyclidine Scrn Ur Amphetamines Screen U Methamphetamines Scrn Ur MDMA Scrn (Ecstasy) U Benzodiazepines Scrn Urine Cocaine Screen U Marijuana (THC) Screen Ketones 10/09/22 10/09/22 10/09/22 21:42 21:42 21:42 WBC RBC Hgb Hct MCV MCH MCHC RDW Plt Count Neut % (Auto) Lymph % (Auto) [place] % (Auto) Eos % (Auto) Baso % (Auto) Neut # (Auto) Lymph # (Auto) [place] # (Auto) Eos # (Auto) Baso # (Auto) VBG pH VBG pCO2 VBG pO2 VBG HCO3 VBG Total CO2 VBG O2 Saturation VBG Base Excess FiO2 Sodium Potassium Chloride Carbon Dioxide BUN Creatinine Estimated GFR BUN/Creatinine Ratio Glucose Hgb A1c (Ref Lab) Estim Average Glucose Lactate Calcium Phosphorus Magnesium Total Bilirubin GGT 13 AST ALT Alkaline Phosphatase Total Protein Albumin Globulin Albumin/Globulin Ratio Triglycerides Cholesterol LDL Cholesterol, Calc HDL Cholesterol Lipase TSH 1.22 Serum , Qual Urine Color Urine Appearance Urine pH Ur Specific [place] Urine Protein Urine Glucose (UA) Urine Ketones Urine Occult Blood Urine Nitrate Urine Bilirubin Urine Urobilinogen Ur Leukocyte Esterase Urine RBC Urine WBC Ur Squamous Epith Cells Urine Bacteria Nasal Screen MRSA (PCR) Salicylates < 1.0 U Opiates 300ng/mL cut Ur Oxycodone Screen Urine Methadone Screen Ur Barbiturates Screen U Tricyclic Antidepress Ur Phencyclidine Scrn Ur Amphetamines Screen U Methamphetamines Scrn Ur MDMA Scrn (Ecstasy) U Benzodiazepines Scrn Urine Cocaine Screen U Marijuana (THC) Screen Ketones 10/09/22 10/10/22 10/10/22 22:38 01:27 04:57 WBC 11.2 H RBC 5.13 Hgb 14.0 Hct 40.2 MCV 78.4 L D MCH 27.3 MCHC 34.8 RDW 12.6 Plt Count 259 Neut % (Auto) 52.3 Lymph % (Auto) 38.8 [place] % (Auto) 5.9 Eos % (Auto) 2.5 Baso % (Auto) 0.5 Neut # (Auto) 5900 Lymph # (Auto) 4400 [place] # (Auto) 700 Eos # (Auto) 300 Baso # (Auto) 100 VBG pH VBG pCO2 VBG pO2 VBG HCO3 VBG Total CO2 VBG O2 Saturation VBG Base Excess FiO2 Sodium 135 L Potassium 3.1 L Chloride 107 Carbon Dioxide 22 BUN 11 Creatinine 0.62 Estimated GFR > 60 BUN/Creatinine Ratio 17.7 Glucose 199 H D Hgb A1c (Ref Lab) Estim Average Glucose Lactate Calcium 7.9 L Phosphorus Magnesium Total Bilirubin GGT AST ALT Alkaline Phosphatase Total Protein Albumin Globulin Albumin/Globulin Ratio Triglycerides Cholesterol LDL Cholesterol, Calc HDL Cholesterol Lipase TSH Serum , Qual Urine Color Urine Appearance Urine pH Ur Specific [place] Urine Protein Urine Glucose (UA) Urine Ketones Urine Occult Blood Urine Nitrate Urine Bilirubin Urine Urobilinogen Ur Leukocyte Esterase Urine RBC Urine WBC Ur Squamous Epith Cells Urine Bacteria Nasal Screen MRSA (PCR) Not detected Salicylates U Opiates 300ng/mL cut Ur Oxycodone Screen Urine Methadone Screen Ur Barbiturates Screen U Tricyclic Antidepress Ur Phencyclidine Scrn Ur Amphetamines Screen U Methamphetamines Scrn Ur MDMA Scrn (Ecstasy) U Benzodiazepines Scrn Urine Cocaine Screen U Marijuana (THC) Screen Ketones 10/10/22 10/10/22 10/10/22 04:57 04:57 05:07 WBC RBC Hgb Hct MCV MCH MCHC RDW Plt Count Neut % (Auto) Lymph % (Auto) [place] % (Auto) Eos % (Auto) Baso % (Auto) Neut # (Auto) Lymph # (Auto) [place] # (Auto) Eos # (Auto) Baso # (Auto) VBG pH 7.35 VBG pCO2 36.4 L VBG pO2 57 H VBG HCO3 20 L VBG Total CO2 21 L VBG O2 Saturation 88 H VBG Base Excess -6.0 L FiO2 21 Sodium 137 Potassium 3.5 Chloride 107 Carbon Dioxide 22 BUN 10 Creatinine 0.56 Estimated GFR > 60 BUN/Creatinine Ratio 17.9 Glucose 60 L D Hgb A1c (Ref Lab) Estim Average Glucose Lactate Calcium 8.3 L Phosphorus Magnesium 1.6 Total Bilirubin GGT AST ALT Alkaline Phosphatase Total Protein Albumin Globulin Albumin/Globulin Ratio Triglycerides 96 Cholesterol 130 L LDL Cholesterol, Calc 70 HDL Cholesterol 41 Lipase TSH Serum , Qual Urine Color Urine Appearance Urine pH Ur Specific [place] Urine Protein Urine Glucose (UA) Urine Ketones Urine Occult Blood Urine Nitrate Urine Bilirubin Urine Urobilinogen Ur Leukocyte Esterase Urine RBC Urine WBC Ur Squamous Epith Cells Urine Bacteria Nasal Screen MRSA (PCR) Salicylates U Opiates 300ng/mL cut Ur Oxycodone Screen Urine Methadone Screen Ur Barbiturates Screen U Tricyclic Antidepress Ur Phencyclidine Scrn Ur Amphetamines Screen U Methamphetamines Scrn Ur MDMA Scrn (Ecstasy) U Benzodiazepines Scrn Urine Cocaine Screen U Marijuana (THC) Screen Ketones [facility] Medical History (Updated 10/10/22 @ 13:17 by Main Gardner DO) ADHD Closed TBI (traumatic brain injury) Type 1 diabetes Surgical History (Updated 10/09/22 @ 22:59 by CARLOTA Gorman) History of wisdom tooth extraction Family History (Updated 10/09/22 @ 22:59 by CARLOTA Gorman) Other Adopted Social History (Updated 10/09/22 @ 22:59 by CARLOTA Gorman) household members: family Smoking Status: Never smoker alcohol intake: never substance use type: does not use Discharge Plan Discharge Plan Patient Disposition: Home Provider Discharge Comment: You were admitted to the hospital with new diagnosis of diabetes. You improved with insulin therapy. For now, continue 10 units of Lantus at night, and with each meal you should count carbohydrates and take 1 U for every 15 grams of carbohydrates. This may need adjustments, especially if your blood sugars are too low you can reduce the amount of insulin with meals at first (meaning adjustments to 1 unit of insulin for every 20 g of carbohydrates). You can add on insulin for high blood sugars as well, I recommend starting with 1unit of insulin to reduce your blood sugar by 50 points (so if glucose is 250 I would take 2 U to target blood sugar of 150). Agree with reading think like a pancreas, this is a great resource as well for more advanced learning. When you do see an milieu counselor encourage you to seek information about insulin pumps. I encourage you to reach out to your insurance provider in the coming days to see about blood sugar testing supplies as well. Be sure to keep a blood glucose log to help better see trends and patterns to help with insulin adjustments. Discharge orders & Medications Prescriptions: New insulin glargine [Lantus Solostar U-100 Insulin] 100 unit/mL (3 mL) insulin pen 10 unit SUBCUT QPM Qty: 15 2RF (DME) Accu-Chek Guide test strips Strip See Rx Instructions .Route Qty: 50 2RF Rx Instructions: As directed (DME) blood-glucose meter [Accu-Chek Guide Glucose Meter] Misc See Rx Instructions .Route Qty: 1 0RF Rx Instructions: As directed (DME) lancets 26 gauge misc See Rx Instructions .Route Qty: 100 2RF Rx Instructions: As directed insulin lispro [Humalog KwikPen Insulin] 100 unit/mL insulin pen 1 sliding scale dose SUBCUT USEASDIRECTD 30 Days Qty: 15 0RF Rx Instructions: 1 Unit per 15 grams of carbohydrates with each meal. Add additional 1 unit for every 50 points of blood sugar elevation over 200. (DME) pen needle, diabetic 31 gauge x 5/16 needle See Rx Instructions .Route Qty: 200 2RF Rx Instructions: As directed for use with insulin pens Continued cholecalciferol (vitamin D3) [Vitamin D3] 50 mcg (2,000 unit) Tablet 50 mcg PO DAILY Diet/Activity/Treatments Diet: Diet as Tolerated and Carb-consistent/Diabetic Activity: As tolerated Visit Report/Discharge Packet Stand Alone Forms: Patient Portal/API, Stroke Signs & Symptoms
[2022-10-11 11:54] LABS: C Peptide 0.8 ng/mL (1.1-4.4); Insulin Level Total 3.3 uIU/mL (2.6-24.9)
[2022-10-11 12:49] LABS: Osmolality, Serum 290 mOsmol/kg (275-295)
[2022-10-12 13:20] LABS: IgA 153 mg/dL (87-352); t-Transglutaminase IgA 3 U/mL (0-3)
[2022-10-14 12:13] LABS: GAD-65 Antibody 51.1 U/mL (0.0-5.0)
== END 2022-10-10 14:20 | disposition home or self-care (01) ==
LOC: ED 20:49 → ICU 22:04 → AC 10-11 08:16
PROVIDERS: Internal Medicine; Admitting Provider Nurse Practitioner Family; Emergency Provider Emergency Medicine; Referring Provider Emergency Medicine; Visit Provider Nurse Practitioner Family
DX: E10.10 Type 1 diabetes mellitus with ketoacidosis without coma (principal); E44.0 Moderate protein-calorie malnutrition; Z68.20 Body mass index [BMI] 20.0-20.9, adult; Z87.820 Personal history of traumatic brain injury
CPT/HCPCS: 36415; 36592; 71046; 80048; 80053; 80061; 80305; 80329; 81001; 81003; 82009; 82784; 82805; 82962; 82977; 83036; 83516; 83525; 83605; 83690; 83735; 83930; 84100; 84443; 84681; 84703; 85025; 86341; 87086; 87797; 93005; 93010; 96361; 96365; 96366; 96372; 99284; G0378; G0480; J1815

== ENCOUNTER 2023-12-17 09:29 | Inpatient (IN) | payer OTHER, SELFPAY ==
[2022-10-09 22:23] VITALS: BMI 20.1
[2023-12-17] VITALS (69 sets, daily range): BP systolic 94–124; BP diastolic 50–65; PULSE 81–102; RESP 14–38; TEMP 36.7–37.2; O2SAT 95–100; BMI 21.9
[2023-12-17] MEDS: SODIUM CHLORIDE 0.9% 1,000 ML 1000 ML IV (10:03)
--- NOTE | 2023-12-17 10:05 | DI.US.S_ITS ---
PROCEDURE: US PELVIC COMPLETE INDICATIONS: pelvic pain, IUD present, vag bleeding TECHNIQUE: Real-time scanning was performed of the pelvic organs, with image documentation. Additional endovaginal scanning was necessary due to incomplete visualization of the adnexal and endometrial structures by transabdominal scanning. COMPARISON: None. FINDINGS: Uterus: Uterus is anteverted and normal in size at 7.4 x 3.3 x 5.2 cm. The myometrium is homogeneous. The endometrium measures 2.7 mm combined thickness. IUD in place within the lower uterine segment with the transverse portion not positioned in the cornua. Ovaries: The right ovary measures 1.5 x 4.0 x 1.7 cm, with a calculated ovarian volume of 5.4 cc. The left ovary measures 2.4 x 2.1 x1.6 cm, with a calculated ovarian volume of 5.6 cc. The ovaries have a normal sonographic appearance. Less than 12 follicles can be seen in each ovary. No adnexal masses are seen. Other: No pathologic free abdominal or pelvic fluid. IMPRESSION: IUD within the lower uterine segment with the transverse portion not positioned in the cornua. No other abnormality within the pelvis. We strive to produce accurate, complete, and clear reports of imaging services. To assist us in improving patient care, this report was composed using standard report templates and voice recognition software. Therefore, it may contain abnormal punctuation, insertions and/or omissions. Occasional wrong-word or sound-alike substitutions may occur. Though we review the report and make efforts to correct it, we do recommend that the report be read carefully in proper context to recognize any text inaccuracies. Dictated by: Genaro Tiwari M.D. on 12/17/2023 at 12:26 Approved by: Genaro Tiwari M.D. on 12/17/2023 at 12:37
--- NOTE | 2023-12-17 10:06 | ED_ITS ---
HPI - General Adult General Chief complaint: Diabetic Problem Stated complaint: abd cramping, vag bleeding, fever sent from [facility] Time Seen by Provider: 12/17/23 09:31 Source: patient Mode of arrival: Ambulatory History of Present Illness HPI narrative: Patient is a 23-year-old insulin-dependent diabetic female who is here for evaluation of abdominal pain, vaginal bleeding, cramping. She does have an IUD in place. It has been there for the past 3 years. Her symptoms started about 3 days ago. This is not the normal time that she would have a menstrual cycle. During this time she was also had quite a bit of difficulty controlling her blood sugars. She went to the walk-in clinic earlier today and her blood sugar was significantly elevated. She has been checking her blood sugar at home and has been high. She has been trying to keep it down with her sliding scale insulin. She was also having vomiting. No fevers. Related Data Home Medications Medication Instructions Recorded Confirmed cholecalciferol (vitamin D3) 50 50 mcg PO DAILY 10/10/22 10/10/22 mcg (2,000 unit) tablet (Vitamin D3) Previous Rx's Medication Instructions Recorded blood sugar diagnostic (Accu-Chek #50 ea 10/09/22 Guide test strips) blood-glucose meter (Accu-Chek #1 ea 10/09/22 Guide Glucose Meter) insulin glargine 100 unit/mL (3 10 unit (0.1 mL) SUBCUT QPM #15 mL 10/09/22 mL) subcutaneous pen (Lantus Solostar U-100 Insulin) lancets 26 gauge #100 ea 10/09/22 pen needle, diabetic 31 gauge x #200 ea 10/10/22 5/16 Allergies Allergy/AdvReac Type Severity Reaction Status Date / Time fluoxetine AdvReac Nightmare Verified 10/09/22 15:42 Review of Systems Review of Systems ROS Unobtainable: All systems reviewed & are unremarkable except as noted in HPI and below Patient History Medical History Type 1 diabetes ADHD Closed TBI (traumatic brain injury) Surgical History (Updated 10/09/22 @ 22:59 by CARLOTA Gorman) History of wisdom tooth extraction Family History (Updated 10/09/22 @ 22:59 by CARLOTA Gorman) Other Adopted Social History household members: family Smoking Status: Never smoker alcohol intake: never substance use type: does not use Smoking Status: Never smoker alcohol intake frequency: holidays/special occasions only Substance Use Type: does not use Exam Initial Vital Signs Initial Vital Signs: Vital Signs Pulse Rate 87 12/17/23 09:36 Pulse Oximetry 98 12/17/23 09:36 Const General: cooperative, comfortable and No ill appearing HENMT Head: normal to inspection and normocephalic Resp Effort & Inspection: normal respiratory effort Auscultation: clear to auscultation bilaterally Cardio Rate: tachycardic Rhythm: regular rhythm GI Inspection: normal to inspection and non-distended Palpation: soft and tender Other: Nursing at bedside pelvic exam was performed. IUD strings are visualized. Patient did small white lumps on the cervix that were cultured otherwise no other lesions noted. Skin General: no rashes or lesions noted Neuro General: patient alert, patient awake, patient oriented x3 and moves all extremities Speech: speech normal Extrem General: normal to inspection and capillary refill normal Psych Appearance: well kempt Mood: anxious mood Scores GCS [place] coma scale eye opening: Spontaneous [place] coma scale verbal response: Orientated [place] coma scale motor response: Obey commands [place] coma scale total score: 15 Course Orders Ordered: ED Orders 12/17/23 09:40 Complete Blood Count AUTO DIFF Stat Comprehensive Metabolic Panel Stat Ketones (Beta-Hydroxybutyrate) Stat Lactate (Lactic Acid) Stat Lipase Stat Magnesium Stat Phosphorous Stat Procalcitonin Stat 12/17/23 09:50 Chlamydia Gonorrhea PCR -URINE Stat Urine Microscopic Stat 12/17/23 09:58 VBG [Venous Blood Gas] STAT 12/17/23 10:05 US pelvic complete Stat Venous Blood Gas Routine 12/17/23 11:45 BMP [Basic Metabolic Panel] Stat Acetaminophen (Acetaminophen 325 Mg Tablet) 650 mg PO Q6H PRN PRN Reason: Fever/Mild Pain (1-3) INSULIN DRIP PREMIX (Myxredlin Drip Premix) 100 unit in 100 mls @ 5.443 mls/hr IV TITRATE BASIM; Protocol Last Titration: 12/17/23 12:51 Dose: 0.05 unit/kg/hr, 2.722 mls/hr Documented By: SHELDON Co-signed By: YAMEL Titration: 12/17/23 12:02 Dose: 0.08 unit/kg/hr, 4.354 mls/hr Documented By: SHELDON Co-signed By: YAMEL Admin: 12/17/23 10:44 Dose: 0.1 unit/kg/hr, 5.443 mls/hr Documented By: SHELDON Co-signed By: YAMEL Sodium Chloride (Normal Saline 0.9%) 1,000 mls @ 200 mls/hr IV CONT BASIM Last Admin: 12/17/23 10:56 Dose: 200 mls/hr Documented By: SHELDON Dextrose/Sodium Chloride (Dextrose 5%-0.45% Ns) 1,000 mls @ 84 mls/hr IV CONT BASIM Last Admin: 12/17/23 13:12 Dose: 84 mls/hr Naloxone HCl (Naloxone 0.4 Mg/Ml Vial) 0.2 mg IV Q2MIN PRN PRN Reason: Opiate Reversal Discontinued Medications Sodium Chloride (Normal Saline 0.9%) 1,000 mls @ 1,000 mls/hr IV BOLUS ONE Stop: 12/17/23 10:57 Last Infusion: 12/17/23 11:00 Dose: Infused Documented By: Admin: 12/17/23 10:03 Dose: 1,000 mls/hr Documented By: SHELDON Ondansetron HCl (Ondansetron 4 Mg/2 Ml Inj) 4 mg IV NOW ONE Stop: 12/17/23 10:06 Last Admin: 12/17/23 10:09 Dose: 4 mg Documented By: SHELDON Vital Signs Vital signs: Vital Signs - 8 hr 12/17/23 09:36 12/17/23 09:37 12/17/23 09:37 Temperature Pulse Rate 87 94 H Respiratory Rate Blood Pressure 118/58 L Pulse Oximetry 98 100 Oxygen Delivery Method 12/17/23 09:49 12/17/23 10:00 12/17/23 10:06 Temperature 98.1 F Pulse Rate 97 H 101 H Respiratory Rate 20 27 H 25 H Blood Pressure 118/58 L Pulse Oximetry 100 99 99 Oxygen Delivery Method Room Air 12/17/23 10:06 12/17/23 10:35 12/17/23 10:56 Temperature Pulse Rate 96 H 99 H Respiratory Rate 22 19 Blood Pressure 113/63 Pulse Oximetry 100 100 Oxygen Delivery Method 12/17/23 11:00 12/17/23 11:01 12/17/23 11:02 Temperature Pulse Rate 98 H 98 H 99 H Respiratory Rate 18 18 24 Blood Pressure Pulse Oximetry 100 100 100 Oxygen Delivery Method 12/17/23 11:03 12/17/23 11:04 12/17/23 11:05 Temperature Pulse Rate 101 H 102 H 97 H Respiratory Rate 21 24 Blood Pressure Pulse Oximetry 100 100 100 Oxygen Delivery Method 12/17/23 11:06 12/17/23 11:07 12/17/23 11:09 Temperature Pulse Rate 94 H 99 H 98 H Respiratory Rate 23 20 20 Blood Pressure Pulse Oximetry 100 100 99 Oxygen Delivery Method 12/17/23 11:11 12/17/23 11:12 12/17/23 11:13 Temperature Pulse Rate 98 H 96 H 96 H Respiratory Rate 21 17 20 Blood Pressure Pulse Oximetry 100 100 100 Oxygen Delivery Method 12/17/23 11:14 12/17/23 11:15 12/17/23 11:17 Temperature Pulse Rate 101 H 97 H Respiratory Rate 20 24 Blood Pressure 95/54 L Pulse Oximetry 99 100 Oxygen Delivery Method 12/17/23 11:20 12/17/23 11:25 12/17/23 11:30 Temperature Pulse Rate 92 H 94 H 89 Respiratory Rate 28 H 17 21 Blood Pressure Pulse Oximetry 100 100 100 Oxygen Delivery Method 12/17/23 11:30 12/17/23 11:35 12/17/23 11:40 Temperature 98.6 F Pulse Rate 92 H 88 Respiratory Rate 20 16 Blood Pressure 94/50 L Pulse Oximetry 100 100 Oxygen Delivery Method 12/17/23 11:52 12/17/23 11:52 12/17/23 11:55 Temperature Pulse Rate 93 H 94 H Respiratory Rate 18 17 Blood Pressure 117/61 Pulse Oximetry 96 99 Oxygen Delivery Method 12/17/23 12:00 12/17/23 12:00 12/17/23 12:05 Temperature Pulse Rate 93 H 95 H Respiratory Rate 17 19 Blood Pressure 103/52 L Pulse Oximetry 98 99 Oxygen Delivery Method 12/17/23 12:10 12/17/23 12:15 12/17/23 12:20 Temperature Pulse Rate 91 H 95 H 98 H Respiratory Rate 22 30 H 22 Blood Pressure Pulse Oximetry 98 98 98 Oxygen Delivery Method 12/17/23 12:25 12/17/23 12:30 12/17/23 12:30 Temperature Pulse Rate 92 H 102 H Respiratory Rate 28 H 24 Blood Pressure 110/65 Pulse Oximetry 98 98 Oxygen Delivery Method Medical Decision Making Medical Records Medical records reviewed: Yes I reviewed the patient's medical records. Lab Data Lab results reviewed: Yes I reviewed the patient's lab results. 12/17/23 09:40 12/17/23 11:45 Labs: Lab Results 12/17/23 12/17/23 12/17/23 Range/Units 09:40 09:50 10:05 WBC 14.1 H (4.5-11.0) X10^3/uL RBC 5.20 (4.0-5.2) X10^6/uL Hgb 14.6 (12.0-16.0) g/dL Hct 44.1 (36-46) % MCV 84.8 (80-100) fL MCH 28.1 (26-34) PG MCHC 33.1 (30-36) % RDW 13.5 (11.6-14.8) % Plt Count 255 (150-400) X10^3/uL Neut % (Auto) 89.6 H (50-75) % Lymph % (Auto) 6.5 L (25-40) % [place] % (Auto) 3.5 (3-14) % Eos % (Auto) 0.1 L (2-4) % Baso % (Auto) 0.3 (0-2) % Neut # (Auto) 97502 H (8307-9996) /uL Lymph # (Auto) 900 L (4657-6525) /uL [place] # (Auto) 500 (0-900) /uL Eos # (Auto) 0 (0-450) /uL Baso # (Auto) 0 (0-100) /uL VBG pH 7.27 L (7.33-7.43) VBG pCO2 35.7 L (45-50) mmHg VBG pO2 86 H (35-45) mmHg VBG HCO3 16 L (24-28) mmol/L VBG Total CO2 16 L (24-29) mmol/L VBG O2 Saturation 95 H (70-75) % VBG Base Excess -9.8 L (0-4) mmol/L Sodium 134 L (137-145) mmol/L Potassium 4.7 (3.4-5.1) mmol/L Chloride 101 (98-107) mmol/L Carbon Dioxide 12 L (22-32) mmol/L BUN 21 H (7-17) mg/dL Creatinine 0.78 (0.52-1.04) mg/dL Estimated GFR > 60 (>60) mL/min BUN/Creatinine Ratio 26.9 H (6-22) Glucose 529 H* (70-100) mg/dL Lactate 2.4 H (0.7-2.1) mmol/L Calcium 9.4 (8.4-10.2) mg/dL Phosphorus 4.2 (2.5-4.5) mg/dL Magnesium 2.0 (1.6-2.3) mg/dL Total Bilirubin 1.1 (0.2-1.3) mg/dL AST 23 (14-36) IU/L ALT 23 (<35) IU/L Alkaline Phosphatase 137 H (38-126) U/L Total Protein 7.4 (6.3-8.2) g/dL Albumin 4.7 (3.5-5.0) g/dL Globulin 2.7 (1.7-4.1) g/dL Albumin/Globulin Ratio 1.7 (1.0-2.8) Lipase 65 (23-300) U/L Procalcitonin 0.666 H (<0.5) ng/mL Urine RBC 1-5/hpf (0-5/HPF) Urine WBC 1-5/hpf (0-5/HPF) Ur Squamous Epith Cells 1-5 /hpf (0-5/HPF) Urine Bacteria Occasional (0-1) (None) Ur Culture Indicated? Cult not indicated Vol Urine Centrifuged 10ml (spun) Ketones 4.70 H (<0.27) mmol/L 12/17/23 12/17/23 Range/Units 11:40 11:45 WBC (4.5-11.0) X10^3/uL RBC (4.0-5.2) X10^6/uL Hgb (12.0-16.0) g/dL Hct (36-46) % MCV (80-100) fL MCH (26-34) PG MCHC (30-36) % RDW (11.6-14.8) % Plt Count (150-400) X10^3/uL Neut % (Auto) (50-75) % Lymph % (Auto) (25-40) % [place] % (Auto) (3-14) % Eos % (Auto) (2-4) % Baso % (Auto) (0-2) % Neut # (Auto) (5388-2068) /uL Lymph # (Auto) (1964-2120) /uL [place] # (Auto) (0-900) /uL Eos # (Auto) (0-450) /uL Baso # (Auto) (0-100) /uL VBG pH (7.33-7.43) VBG pCO2 (45-50) mmHg VBG pO2 (35-45) mmHg VBG HCO3 (24-28) mmol/L VBG Total CO2 (24-29) mmol/L VBG O2 Saturation (70-75) % VBG Base Excess (0-4) mmol/L Sodium 136 L (137-145) mmol/L Potassium 4.7 (3.4-5.1) mmol/L Chloride 108 H (98-107) mmol/L Carbon Dioxide 10 L (22-32) mmol/L BUN 20 H (7-17) mg/dL Creatinine 0.68 (0.52-1.04) mg/dL Estimated GFR > 60 (>60) mL/min BUN/Creatinine Ratio 29.4 H (6-22) Glucose 399 H D (70-100) mg/dL Lactate 1.5 (0.7-2.1) mmol/L Calcium 8.7 (8.4-10.2) mg/dL Phosphorus (2.5-4.5) mg/dL Magnesium (1.6-2.3) mg/dL Total Bilirubin (0.2-1.3) mg/dL AST (14-36) IU/L ALT (<35) IU/L Alkaline Phosphatase (38-126) U/L Total Protein (6.3-8.2) g/dL Albumin (3.5-5.0) g/dL Globulin (1.7-4.1) g/dL Albumin/Globulin Ratio (1.0-2.8) Lipase (23-300) U/L Procalcitonin (<0.5) ng/mL Urine RBC (0-5/HPF) Urine WBC (0-5/HPF) Ur Squamous Epith Cells (0-5/HPF) Urine Bacteria (None) Ur Culture Indicated? Vol Urine Centrifuged Ketones (<0.27) mmol/L Point of Care Testing Test Results Negative Glucose POC 261 Urine Dip Bedside Urine Glucose 1000 mg/dl Bedside Urine Bilirubin - Negative Bedside Urine Ketone +++ 80 Urine Specific [place] 1.015 Bedside Urine Occult Blood +++ Bedside Urine pH 6.0 Bedside Urine Urobilinogen - Negative Bedside Urine Nitrite - Negative Bedside Urine Leukocytes - Negative Esterase Point of care testing: Point of Care Testing Test Results Negative Glucose POC 261 Urine Dip Bedside Urine Glucose 1000 mg/dl Bedside Urine Bilirubin - Negative Bedside Urine Ketone +++ 80 Urine Specific [place] 1.015 Bedside Urine Occult Blood +++ Bedside Urine pH 6.0 Bedside Urine Urobilinogen - Negative Bedside Urine Nitrite - Negative Bedside Urine Leukocytes - Negative Esterase Imaging Data US - PHYSICIAN'S ASSISTANT: Radiologist's Impression: PROCEDURE: US PELVIC COMPLETE INDICATIONS: pelvic pain, IUD present, vag bleeding TECHNIQUE: Real-time scanning was performed of the pelvic organs, with image documentation. Additional endovaginal scanning was necessary due to incomplete visualization of the adnexal and endometrial structures by transabdominal scanning. COMPARISON: None. FINDINGS: Uterus: Uterus is anteverted and normal in size at 7.4 x 3.3 x 5.2 cm. The myometrium is homogeneous. The endometrium measures 2.7 mm combined thickness. IUD in place within the lower uterine segment with the transverse portion not positioned in the cornua. Ovaries: The right ovary measures 1.5 x 4.0 x 1.7 cm, with a calculated ovarian volume of 5.4 cc. The left ovary measures 2.4 x 2.1 x1.6 cm, with a calculated ovarian volume of 5.6 cc. The ovaries have a normal sonographic appearance. Less than 12 follicles can be seen in each ovary. No adnexal masses are seen. Other: No pathologic free abdominal or pelvic fluid. IMPRESSION: IUD within the lower uterine segment with the transverse portion not positioned in the cornua. No other abnormality within the pelvis. MDM Narrative Medical decision making narrative: Patient is having vaginal bleeding. Cultures have been obtained and are pending at the time of admission. Ultrasound does show that the IUD is in the lower uterine segment. Patient was also in DKA. There was no specific signs of infection currently. No antibiotics have been administered. Potentially has been issues with her insulin pump at home. She has a benign abdomen and after medications and fluids here in the ER she was reporting improvement. Patient does require admission to the hospital. Initial anion gap 21. After repeat anion gap down to 18. Potassium has been unremarkable. She has been on an insulin drip and has been titrated appropriately. I did discuss the case with Dr. Taylor hospitalist on-call who will admit. Discussed the need for admission with the patient and her mother who is at bedside. They expressed understanding and agreement with plan. Critical Care Time Critical Care Time Critical Care Time: Yes Total Critical Care Time: 40 Attestation: The high probability of a clinically significant, sudden or life threatening deterioration of the [endocrine/] system(s) required my full and direct attention, intervention and personal management. The aggregate critical care time was [40] minutes. This time is in addition to time spent performing reported procedures but includes the following: [X] Data Review and interpretation [X] Patient assessment and monitoring of vital signs [X] Documentation [X] Medication orders and management Discharge Plan Departure Patient Disposition: Admitted As Inpatient Clinical Impression: DKA (diabetic ketoacidosis), Abnormal vaginal bleeding Admit Date/Time: 12/17/23 12:46 Admit Provider: Yfn Taylor
[2023-12-17 10:07] LABS: Base Excess VBG -9.8 mmol/L (0-4); HCO3 VBG 16 mmol/L (24-28); Oxygen Saturation VBG 95 % (70-75); PCO2 VBG 35.7 mmHg (45-50); PO2 VBG 86 mmHg (35-45); Total CO2 VBG 16 mmol/L (24-29); pH VBG 7.27 (7.33-7.43)
[2023-12-17 10:07] LABS: Add Manual Diff / Slide Review NO; Basophils Absolute Auto 0 /uL (0-100); Basophils Percent Auto 0.3 % (0-2); Eosinophils Absolute Auto 0 /uL (0-450); Eosinophils Percent Auto 0.1 % (2-4); Hematocrit 44.1 % (36-46); Hemoglobin 14.6 g/dL (12.0-16.0); Lymphocytes Absolute Auto 900 /uL (1100-4500); Lymphocytes Percent Auto 6.5 % (25-40); Mean Corpuscular HGB Conc 33.1 % (30-36); Mean Corpuscular Hemoglobin 28.1 PG (26-34); Mean Corpuscular Volume 84.8 fL (80-100); Monocytes Absolute Auto 500 /uL (0-900); Monocytes Percent Auto 3.5 % (3-14); Neutrophils Absolute Auto 12600 /uL (1500-7000); Neutrophils Percent Auto 89.6 % (50-75); Platelet Count 255 X10^3/uL (150-400); Red Cell Distribution Width 13.5 % (11.6-14.8); White Blood Cell Count 14.1 X10^3/uL (4.5-11.0)
[2023-12-17] MEDS: ONDANSETRON 4 MG/2 ML INJ IV (10:09)
[2023-12-17 10:13] LABS: Alanine Aminotransferase 23 IU/L (<35); Albumin 4.7 g/dL (3.5-5.0); Albumin Globulin Ratio 1.7 (1.0-2.8); Alkaline Phosphatase 137 U/L (38-126); Aspartate Aminotransferase 23 IU/L (14-36); BUN Creatinine Ratio 26.9 (6-22); Bilirubin Total 1.1 mg/dL (0.2-1.3); Blood Urea Nitrogen 21 mg/dL (7-17); Calcium 9.4 mg/dL (8.4-10.2); Carbon Dioxide 12 mmol/L (22-32); Chloride 101 mmol/L (98-107); Estimated Glomerular Filt Rate > 60 mL/min (>60); Globulin 2.7 g/dL (1.7-4.1); HEMOLYSIS < 15 (0-50); Potassium 4.7 mmol/L (3.4-5.1); Sodium 134 mmol/L (137-145); Total Protein 7.4 g/dL (6.3-8.2)
[2023-12-17 10:14] LABS: Lactate (Lactic Acid) 2.4 mmol/L (0.7-2.1)
[2023-12-17 10:16] LABS: Glucose 529 mg/dL (70-100)
[2023-12-17 10:17] LABS: Lipase 65 U/L (23-300); Phosphorous 4.2 mg/dL (2.5-4.5)
[2023-12-17 10:19] LABS: Bacteria Urine Occasional (0-1); Culture Indicated Urine Cult Not Indicated; RBC Urine 1-5/HPF (0-5/HPF); Squamous Epithelial Cell Urine 1-5 /HPF (0-5/HPF); Urine Volume 10mL (spun); WBC Urine 1-5/HPF (0-5/HPF)
[2023-12-17 10:34] LABS: Procalcitonin 0.666 ng/mL (<0.5)
[2023-12-17] MEDS: INSULIN DRIP PREMIX 100 UNIT/100 ML PLAST..BAG 5.443 UNIT IV (10:44)
[2023-12-17] MEDS: SODIUM CHLORIDE 0.9% 1,000 ML 200 ML IV (10:56)
[2023-12-17 11:40] LABS: Reflexed Lactate in 2 Hours Y
--- NOTE | 2023-12-17 12:04 | PC.NURSE ---
1 hr after starting insulin gtt, BG was checked and found to be 417. Dr. Castillo made aware for glucose drop of 112 points from time of initiation. Dr. Castillo and Pharmacist Delmar roy'd to not follow protocol and to decrease insulin gtt from 0.1units/kg/hr to 0.8 units/kg/hr. Gtt running at 0.8 units/kg/ hr. Will continue to closely moitor glucose.
[2023-12-17 12:11] LABS: Lactate 2HR (Lactic Acid Rflx) 1.5 mmol/L (0.7-2.1)
[2023-12-17 12:17] LABS: BUN Creatinine Ratio 29.4 (6-22); Blood Urea Nitrogen 20 mg/dL (7-17); Calcium 8.7 mg/dL (8.4-10.2); Carbon Dioxide 10 mmol/L (22-32); Chloride 108 mmol/L (98-107); Estimated Glomerular Filt Rate > 60 mL/min (>60); Glucose 399 mg/dL (70-100); HEMOLYSIS 17 (0-50); Potassium 4.7 mmol/L (3.4-5.1); Sodium 136 mmol/L (137-145)
[2023-12-17] MEDS: DEXTROSE 5%-0.45% NS 1,000 ML 84 ML IV (13:12)
--- NOTE | 2023-12-17 13:20 | PM.HP.1 ---
History of Present Illness History of Present Illness Date Patient Seen: 12/17/23 Chief complaint: abd cramping, vag bleeding, fever sent from [facility] Narrative: ED Note: Patient is a 23-year-old insulin-dependent diabetic female who is here for evaluation of abdominal pain, vaginal bleeding, cramping. She does have an IUD in place. It has been there for the past 3 years. Her symptoms started about 3 days ago. This is not the normal time that she would have a menstrual cycle. During this time she was also had quite a bit of difficulty controlling her blood sugars. She went to the walk-in clinic earlier today and her blood sugar was significantly elevated. She has been checking her blood sugar at home and has been high. She has been trying to keep it down with her sliding scale insulin. She was also having vomiting. No fevers. 23-year-old female with past medical history of DM type 1 which sounds like it was previously well controlled presenting with acute abdominal pain, vaginal bleeding and found to be in DKA and the ED. Patient states 3 days ago she is parents worsening glycemic control which he is unable to manage with increasing sliding scale insulin. She notes that she has not yet received her Dexcom and control her sugars without it has been very difficult recently. Around the time her glycemic control worsened she also began experiencing abdominal pain and minor vaginal bleeding outside are normal menstrual cycle. Symptoms gross was worsening abdominal pain and associated nausea and vomiting prompting visit to the urgent care within referred to our ED. patient was found to be in DKA was blood sugars in the 3 to 400s and elevated ketones. Due to lower abdominal pain and vaginal bleeding ultrasound was performed which was unrevealing for any pathology. [facility] Medical History Type 1 diabetes ADHD Closed TBI (traumatic brain injury) Surgical History History of wisdom tooth extraction Family History Other Adopted Social History household members: family Smoking Status: Never smoker alcohol intake: never substance use type: does not use Meds Home Medications and Allergies Home Medications Medication Instructions Recorded Confirmed Type blood sugar diagnostic (Accu-Chek #50 ea 10/09/22 Rx Guide test strips) blood-glucose meter (Accu-Chek #1 ea 10/09/22 Rx Guide Glucose Meter) lancets 26 gauge #100 ea 10/09/22 Rx pen needle, diabetic 31 gauge x #200 ea 10/10/22 Rx 5/16 Allergies Allergy/AdvReac Type Severity Reaction Status Date / Time fluoxetine AdvReac Nightmare Verified 10/09/22 15:42 Review of Systems Review of Systems Narrative: all systems reviewed, negative unless mentioned in HPI Exam Vital Signs (past 8 hours): - 12/17/23 09:36 12/17/23 09:37 12/17/23 09:37 Temperature Pulse Rate 87 94 H Respiratory Rate Blood Pressure 118/58 L Pulse Oximetry 98 100 Oxygen Delivery Method 12/17/23 09:49 12/17/23 10:00 12/17/23 10:06 Temperature 98.1 F Pulse Rate 97 H 101 H Respiratory Rate 20 27 H 25 H Blood Pressure 118/58 L Pulse Oximetry 100 99 99 Oxygen Delivery Method Room Air 12/17/23 10:06 12/17/23 10:35 12/17/23 10:56 Temperature Pulse Rate 96 H 99 H Respiratory Rate 22 19 Blood Pressure 113/63 Pulse Oximetry 100 100 Oxygen Delivery Method 12/17/23 11:00 12/17/23 11:01 12/17/23 11:02 Temperature Pulse Rate 98 H 98 H 99 H Respiratory Rate 18 18 24 Blood Pressure Pulse Oximetry 100 100 100 Oxygen Delivery Method 12/17/23 11:03 12/17/23 11:04 12/17/23 11:05 Temperature Pulse Rate 101 H 102 H 97 H Respiratory Rate 21 24 Blood Pressure Pulse Oximetry 100 100 100 Oxygen Delivery Method 12/17/23 11:06 12/17/23 11:07 12/17/23 11:09 Temperature Pulse Rate 94 H 99 H 98 H Respiratory Rate 23 20 20 Blood Pressure Pulse Oximetry 100 100 99 Oxygen Delivery Method 12/17/23 11:11 12/17/23 11:12 12/17/23 11:13 Temperature Pulse Rate 98 H 96 H 96 H Respiratory Rate 21 17 20 Blood Pressure Pulse Oximetry 100 100 100 Oxygen Delivery Method 12/17/23 11:14 12/17/23 11:15 12/17/23 11:17 Temperature Pulse Rate 101 H 97 H Respiratory Rate 20 24 Blood Pressure 95/54 L Pulse Oximetry 99 100 Oxygen Delivery Method 12/17/23 11:20 12/17/23 11:25 12/17/23 11:30 Temperature Pulse Rate 92 H 94 H 89 Respiratory Rate 28 H 17 21 Blood Pressure Pulse Oximetry 100 100 100 Oxygen Delivery Method 12/17/23 11:30 12/17/23 11:35 12/17/23 11:40 Temperature 98.6 F Pulse Rate 92 H 88 Respiratory Rate 20 16 Blood Pressure 94/50 L Pulse Oximetry 100 100 Oxygen Delivery Method 12/17/23 11:52 12/17/23 11:52 12/17/23 11:55 Temperature Pulse Rate 93 H 94 H Respiratory Rate 18 17 Blood Pressure 117/61 Pulse Oximetry 96 99 Oxygen Delivery Method 12/17/23 12:00 12/17/23 12:00 12/17/23 12:05 Temperature Pulse Rate 93 H 95 H Respiratory Rate 17 19 Blood Pressure 103/52 L Pulse Oximetry 98 99 Oxygen Delivery Method 12/17/23 12:10 12/17/23 12:15 12/17/23 12:20 Temperature Pulse Rate 91 H 95 H 98 H Respiratory Rate 22 30 H 22 Blood Pressure Pulse Oximetry 98 98 98 Oxygen Delivery Method 12/17/23 12:25 12/17/23 12:30 12/17/23 12:30 Temperature Pulse Rate 92 H 102 H Respiratory Rate 28 H 24 Blood Pressure 110/65 Pulse Oximetry 98 98 Oxygen Delivery Method Oxygen Delivery Method Room Air Narrative Exam Narrative: General: Good hygiene, age-appropriate, well-appearing Lungs:? Normal effort, clear to auscultation bilaterally Cardio: Tachycardic and regular Abdomen: Mild tenderness to palpation all quadrants MSK/Skin/Extremities: Good muscle tone, moving all limbs Neuro: No obvious neurological deficits? Psych:? Pleasant Objective Labs 12/17/23 09:40 12/17/23 11:45 Labs: Laboratory Results - last 24 hr 12/17/23 12/17/23 12/17/23 09:40 09:50 10:05 WBC 14.1 H RBC 5.20 Hgb 14.6 Hct 44.1 MCV 84.8 MCH 28.1 MCHC 33.1 RDW 13.5 Plt Count 255 Neut % (Auto) 89.6 H Lymph % (Auto) 6.5 L [place] % (Auto) 3.5 Eos % (Auto) 0.1 L Baso % (Auto) 0.3 Neut # (Auto) 91486 H Lymph # (Auto) 900 L [place] # (Auto) 500 Eos # (Auto) 0 Baso # (Auto) 0 VBG pH 7.27 L VBG pCO2 35.7 L VBG pO2 86 H VBG HCO3 16 L VBG Total CO2 16 L VBG O2 Saturation 95 H VBG Base Excess -9.8 L Sodium 134 L Potassium 4.7 Chloride 101 Carbon Dioxide 12 L BUN 21 H Creatinine 0.78 Estimated GFR > 60 BUN/Creatinine Ratio 26.9 H Glucose 529 H* Lactate 2.4 H Calcium 9.4 Phosphorus 4.2 Magnesium 2.0 Total Bilirubin 1.1 AST 23 ALT 23 Alkaline Phosphatase 137 H Total Protein 7.4 Albumin 4.7 Globulin 2.7 Albumin/Globulin Ratio 1.7 Lipase 65 Procalcitonin 0.666 H Urine RBC 1-5/hpf Urine WBC 1-5/hpf Ur Squamous Epith Cells 1-5 /hpf Urine Bacteria Occasional (0-1) Ur Culture Indicated? Cult not indicated Vol Urine Centrifuged 10ml (spun) Ketones 4.70 H 12/17/23 12/17/23 11:40 11:45 WBC RBC Hgb Hct MCV MCH MCHC RDW Plt Count Neut % (Auto) Lymph % (Auto) [place] % (Auto) Eos % (Auto) Baso % (Auto) Neut # (Auto) Lymph # (Auto) [place] # (Auto) Eos # (Auto) Baso # (Auto) VBG pH VBG pCO2 VBG pO2 VBG HCO3 VBG Total CO2 VBG O2 Saturation VBG Base Excess Sodium 136 L Potassium 4.7 Chloride 108 H Carbon Dioxide 10 L BUN 20 H Creatinine 0.68 Estimated GFR > 60 BUN/Creatinine Ratio 29.4 H Glucose 399 H D Lactate 1.5 Calcium 8.7 Phosphorus Magnesium Total Bilirubin AST ALT Alkaline Phosphatase Total Protein Albumin Globulin Albumin/Globulin Ratio Lipase Procalcitonin Urine RBC Urine WBC Ur Squamous Epith Cells Urine Bacteria Ur Culture Indicated? Vol Urine Centrifuged Ketones Assessment & Plan Assessment & Plan narrative: Assessment / Plan # DKA # DM I # Vaginal Bleeding of Unclear Etiology Plan -insulin gtt and IVF per DKA protocol -BMP q4hr, replete K+ as needed. -GC / chlamydia pcr -Will consider consult of ob-sound effects person pending clinical course -patient encourage to bring in home insulin pump for transition DVT PPx: SCD CODE: [employer]-Based Coding :: [TOTAL MINUTES] spent with patient and on the chart (including review of chart, obtaining history, exam, reviewing outside data, placing orders, documenting exam and treatment plan, and counseling patient) on [DATE]. Quality MIPS - Admit I confirm the patient?s Advance Care Plan is present, Code status is documented, Surrogate decision maker is in patient?s record [If Yes, STOP here]: Yes MIPS - Meds 'Current medications' to include all prescriptions, [id number] products, herbals, cannabis/cannabidiol products, and vitamin/mineral/dietary (nutritional) supplements. I have utilized all available resources to obtain, update, or review the patient?s current medications. [If Yes, STOP here]: Yes
[2023-12-17 13:26] LABS: Urine Chlamydia NOT DETECTED; Urine N gonorrhoeae NOT DETECTED
[2023-12-17] MEDS: DEXTROSE 5%-LACTATED RINGERS 1,000 ML 200 ML IV (14:58)
[2023-12-17 15:03] LABS: BUN Creatinine Ratio 27.6 (6-22); Blood Urea Nitrogen 16 mg/dL (7-17); Calcium 8.7 mg/dL (8.4-10.2); Carbon Dioxide 14 mmol/L (22-32); Chloride 110 mmol/L (98-107); Estimated Glomerular Filt Rate > 60 mL/min (>60); Glucose 216 mg/dL (70-100); HEMOLYSIS < 15 (0-50); Potassium 4.2 mmol/L (3.4-5.1); Sodium 136 mmol/L (137-145)
[2023-12-17 17:44] LABS: BUN Creatinine Ratio 23.2 (6-22); Blood Urea Nitrogen 13 mg/dL (7-17); Calcium 8.5 mg/dL (8.4-10.2); Carbon Dioxide 17 mmol/L (22-32); Chloride 107 mmol/L (98-107); Estimated Glomerular Filt Rate > 60 mL/min (>60); Glucose 206 mg/dL (70-100); HEMOLYSIS < 15 (0-50); Potassium 3.7 mmol/L (3.4-5.1); Sodium 133 mmol/L (137-145)
[2023-12-17] MEDS: POTASSIUM CHLORIDE 20 MEQ/15 ML UDC 40 MEQ PO (18:23)
--- NOTE | 2023-12-17 18:25 | PC.NURSE ---
Pt arrived to ICU rm [id number] at approximately 13:30. A&Ox4, glucose as documented. IV fluids adjusted per new provider orders (Dr. Taylor). Insulin drip turned off at 1813 after home insulin pump placed on lower left abdomen and initiated by patient. Pt tolerating carb consistent diet. Ambulatory in room SBA to BR. Parent and spouse at bedside.
[2023-12-17] MEDS: INSULIN LISPRO 100 UNIT/ML 3ML VIAL SUBCUT (20:27)
[2023-12-17] MEDS: LACTATED RINGERS 500 ML 1000 ML IV (20:28)
[2023-12-17 21:52] LABS: BUN Creatinine Ratio 20.5 (6-22); Blood Urea Nitrogen 17 mg/dL (7-17); Calcium 8.9 mg/dL (8.4-10.2); Carbon Dioxide 16 mmol/L (22-32); Chloride 104 mmol/L (98-107); Estimated Glomerular Filt Rate > 60 mL/min (>60); Glucose 393 mg/dL (70-100); HEMOLYSIS < 15 (0-50); Potassium 4.5 mmol/L (3.4-5.1); Sodium 132 mmol/L (137-145)
[2023-12-17] MEDS: INSULIN LISPRO 100 UNIT/ML 3ML VIAL 6 UNIT SUBCUT (22:36)
[2023-12-18] VITALS (36 sets, daily range): BP systolic 95–97; BP diastolic 52–59; PULSE 68–99; RESP 12–42; TEMP 36.9–37.2; O2SAT 90–99
[2023-12-18 04:58] LABS: Add Manual Diff / Slide Review NO; Basophils Absolute Auto 0 /uL (0-100); Basophils Percent Auto 0.4 % (0-2); Eosinophils Absolute Auto 100 /uL (0-450); Eosinophils Percent Auto 1.1 % (2-4); Hematocrit 35.9 % (36-46); Hemoglobin 12.1 g/dL (12.0-16.0); Lymphocytes Absolute Auto 2300 /uL (1100-4500); Lymphocytes Percent Auto 24.3 % (25-40); Mean Corpuscular HGB Conc 33.7 % (30-36); Monocytes Absolute Auto 600 /uL (0-900); Monocytes Percent Auto 6.2 % (3-14); Neutrophils Absolute Auto 6400 /uL (1500-7000); Platelet Count 232 X10^3/uL (150-400); Red Blood Cell Count 4.33 X10^6/uL (4.0-5.2); Red Cell Distribution Width 13.3 % (11.6-14.8); White Blood Cell Count 9.4 X10^3/uL (4.5-11.0)
[2023-12-18 05:11] LABS: Alanine Aminotransferase 15 IU/L (<35); Albumin 3.5 g/dL (3.5-5.0); Albumin Globulin Ratio 1.5 (1.0-2.8); Alkaline Phosphatase 79 U/L (38-126); Aspartate Aminotransferase 19 IU/L (14-36); BUN Creatinine Ratio 28.6 (6-22); Bilirubin Total 0.8 mg/dL (0.2-1.3); Blood Urea Nitrogen 18 mg/dL (7-17); Calcium 8.5 mg/dL (8.4-10.2); Carbon Dioxide 19 mmol/L (22-32); Chloride 105 mmol/L (98-107); Estimated Glomerular Filt Rate > 60 mL/min (>60); Globulin 2.4 g/dL (1.7-4.1); Glucose 214 mg/dL (70-100); HEMOLYSIS < 15 (0-50); Sodium 132 mmol/L (137-145); Total Protein 5.9 g/dL (6.3-8.2)
[2023-12-18] MEDS: INSULIN GLARGINE 100 UNIT/ML 3ML PEN 20 UNIT SUBCUT (08:26)
[2023-12-18] MEDS: INSULIN LISPRO 100 UNIT/ML 3ML VIAL SUBCUT (08:27)
--- NOTE | 2023-12-18 11:08 | DIET.CONS ---
Dietary Consultation Note Admission Date: 12/17/2023 12:46 Assessment: 23 y F admitted for DKA. Nutrition consulted for new dx diabetes. Pt dx w/ type 1 diabetes last year. Before admission, difficulty controlling BG for last 3 days. Met w/ pt at bedside. Reports having gone through and completed classes with diabetes educ. Uses resources provided for carb counting, 1:10 ICR. Notes BG can be higher in morning if she has late night meal/snack. Reports concern that BG has remained high before 3 days before admission and now despite increased insulin dosing. Is currently not using pump and injecting, rotating spots. BG is being checked with finger sticks and using CGM. Ht: 157.48 cm Wt: 54.431 kg BMI: 21.9 UBW: 50 kg on 10/09/22 Last BM: 12/16/23 (12/17/23 12:50) MNA: 10 Asa Score: 23 Diet: 12/17/23 Dinner Carbohydrate Consistent Diet Diet Modifications: Carbohydrate level: Medium (3 CHO) Reflex DM orders: No Food Texture: Level 7 - Regular Liquid Consistency: Level 0 - Thin Nutrition Percent Meal Consumed 100% 12/17/23 19:18 Labs: RBC 4.33 X10^6/uL (4.0-5.2) 12/18/23 04:22 Hgb 12.1 g/dL (12.0-16.0) 12/18/23 04:22 Hct 35.9 % (36-46) L 12/18/23 04:22 Creatinine 0.63 mg/dL (0.52-1.04) 12/18/23 04:22 Lactate 1.5 mmol/L (0.7-2.1) 12/17/23 11:40 Nutrition Diagnosis: Altered nutrition related lab values r/t endocrine dysfunction aeb BG 300-400s Interventions: 1. Coordination of care with casual shoe inspector to address pt's concerns over persistent highs Monitoring/Evaluations: BG Electronically Signed by: Izzy Rashid 12/18/23 11:08 Clinical Dietitian [address] [address]
[2023-12-18] MEDS: INSULIN LISPRO SUBCUT (12:42)
--- NOTE | 2023-12-18 15:40 | CM.DANOTE ---
DCP Assessment Note-Brief Pt is a 23yo f here following DKA/vaginal bleeding. PCP none listed Payer [employer] and Medicaid OVERHEAD DISTRIBUTION ENGINEER reviewed EMR. Per RN, pt newly diagnosed as type 1 diabetic. Per provider in morning rounds, pt may dc later this afternoon. Hopeful for close OB/granular operator follow up. Pt lives in [place] with family and partner. Per RN, pt has granular operator follow up for tomorrow at 7am in OP setting. Asked for work excuse letter. OVERHEAD DISTRIBUTION ENGINEER completed it and handed to nursing to hand to RN to give to pt with dc instructions. Per RN, pt is working on getting expedited f/u appt for OB. OVERHEAD DISTRIBUTION ENGINEER met with pt and mom in room. Confirms granular operator appt tomorrow at 7am. Has OB appt in [facility] for 12/25 but was really hoping to get f/u appt sooner. OVERHEAD DISTRIBUTION ENGINEER lvm on pt's behalf at scheduling line for OB office, gave them pt's call back number for return call. Pt appreciative of this rifle case repairer efforts. P: pt to dc home today with family support and close OP f/u. no identified barriers to safe dc home identified at this time. CM team will continue to follow as needed NISREEN Robison Discharge Planning/Care Management CM Discharge Assessment Start: 12/18/23 15:39 Freq: Status: Active Protocol: Document 12/18/23 15:39 (Rec: 12/18/23 15:40 [email or web address]) Discharge Planning Assessment Assigned Pan Puller NISREEN Loaiza DPOA/Assigned Designee Name mother Liao Contact Information [phone] Advance Directives? No History Provided By Patient,Medical Record Prior Living Arrangements House Household Members family Type of transporation used prior to Drives own vehicle admit Independent with ADL's Yes Is patient alert and oriented? Yes Discharge Plan Home Transportation Arrangement friend or spouse Referrals Initiated None needed Whiteboard Updated in Patient Room with No name and ext. # of Pan Puller Review Status In Process Please Provide Date Initial DC 12/18/23 Assessment Was Performed Next Review Type Continued Stay Review
--- NOTE | 2023-12-18 15:56 | P.DS_ITS ---
History of Present Illness History of Present Illness Chief complaint: abd cramping, vag bleeding, fever sent from [facility] Narrative: ED Note: Patient is a 23-year-old insulin-dependent diabetic female who is here for evaluation of abdominal pain, vaginal bleeding, cramping. She does have an IUD in place. It has been there for the past 3 years. Her symptoms started about 3 days ago. This is not the normal time that she would have a menstrual cycle. During this time she was also had quite a bit of difficulty controlling her blood sugars. She went to the walk-in clinic earlier today and her blood sugar was significantly elevated. She has been checking her blood sugar at home and has been high. She has been trying to keep it down with her sliding scale insulin. She was also having vomiting. No fevers. 23-year-old female with past medical history of DM type 1 which sounds like it was previously well controlled presenting with acute abdominal pain, vaginal bleeding and found to be in DKA and the ED. Patient states 3 days ago she is parents worsening glycemic control which he is unable to manage with increasing sliding scale insulin. She notes that she has not yet received her Dexcom and control her sugars without it has been very difficult recently. Around the time her glycemic control worsened she also began experiencing abdominal pain and minor vaginal bleeding outside are normal menstrual cycle. Symptoms gross was worsening abdominal pain and associated nausea and vomiting prompting visit to the urgent care within referred to our ED. patient was found to be in DKA was blood sugars in the 3 to 400s and elevated ketones. Due to lower abdominal pain and vaginal bleeding ultrasound was performed which was unrevealing for any pathology. Discharge Providers Provider Date of admission: 12/17/23 12:46 Discharge Date: 12/18/23 Consults: 12/17/23 14:52 Consult to Dietitian, Adult Routine Comment: Reason For Exam: new dx of diabetes Discharge provider: Yfn Taylor MD Summary Hospital Course Discharge Diagnosis: #DKA likely due to insulin pump faliure #Non-menstural vaginal bleeding, possibly due to misposition IUD Hospital Course: No obvious cause of vaginal bleeding other than malpositioned IUD. No obvious source of infection to explain dka or lower abd pain. Patient was started on insulin drip and IVF with rapid improvement in symptoms she was then transitioned back to her home pump with again failure and difficultly to control her blood sugars. She was then again transition back to subq insulin with improvement. She was discharged in stable and improved condition Status at Discharge Cognitive/behavioral status at discharge: oriented Overall status at discharge: patient is back to baseline Time Spent with Patient Time spent: Greater than 30 minutes Exam Vital Signs (past 8 hours): - 12/18/23 08:00 12/18/23 12:00 Temperature 99 F 98.5 F Pulse Rate 84 85 Respiratory Rate 14 16 Blood Pressure 95/54 L 96/52 L Pulse Oximetry 99 98 Oxygen Delivery Method Room Air Oxygen Flow Rate 0 Narrative Exam Narrative: general: age appropriate, not ill appearing lung: normal effort cardio: RRR abd: soft and non-tender neuro: no deficits Const General: cooperative and healthy appearing Objective Labs 12/18/23 04:22 12/18/23 04:22 Labs: Laboratory Results - last 24 hr 12/17/23 12/17/23 12/18/23 17:25 21:20 04:22 WBC 9.4 RBC 4.33 Hgb 12.1 Hct 35.9 L MCV 83.0 MCH 28.0 MCHC 33.7 RDW 13.3 Plt Count 232 Neut % (Auto) 68.0 D Lymph % (Auto) 24.3 L Nobles % (Auto) 6.2 Eos % (Auto) 1.1 L Baso % (Auto) 0.4 Neut # (Auto) 6400 Lymph # (Auto) 2300 Nobles # (Auto) 600 Eos # (Auto) 100 Baso # (Auto) 0 Sodium 133 L 132 L 132 L Potassium 3.7 4.5 4.0 Chloride 107 104 105 Carbon Dioxide 17 L 16 L 19 L BUN 13 17 18 H Creatinine 0.56 0.83 0.63 Estimated GFR > 60 > 60 > 60 BUN/Creatinine Ratio 23.2 H 20.5 28.6 H Glucose 206 H 393 H D 214 H D Calcium 8.5 8.9 8.5 Total Bilirubin 0.8 AST 19 ALT 15 Alkaline Phosphatase 79 D Total Protein 5.9 L Albumin 3.5 Globulin 2.4 Albumin/Globulin Ratio 1.5 [facility] Medical History Type 1 diabetes ADHD Closed TBI (traumatic brain injury) Surgical History History of wisdom tooth extraction Family History Other Adopted Social History household members: family Smoking Status: Never smoker alcohol intake: current substance use type: does not use Discharge Assessment & Plan Assessment and Plan Assessment: #DKA due to presumed insulin pump failure #Vaginal bleeding of unclear etiology possible malpositioned IUD Plan of Treatment: patient will see poultry hatchery man tomorrow to setup pump and discuss insulin patient is going to all ob-stringer up soldering machine provider for recommendations advised to take increased doses of subq insulin with dinner and do correction at bedtime rx for lantus 20u given Discharge Plan Discharge Plan Patient Disposition: Home Provider Discharge Comment: Patient stable for discharge with close follow-up with poultry hatchery man and PCP Discharge orders & Medications Prescriptions: New insulin glargine [Lantus U-100 Insulin] 100 unit/mL solution 20 unit SUBCUT DAILY Qty: 5 0RF Continued (DME) Accu-Chek Guide test strips Strip See Rx Instructions .Route Qty: 50 2RF Rx Instructions: As directed (DME) blood-glucose meter [Accu-Chek Guide Glucose Meter] Misc See Rx Instructions .Route Qty: 1 0RF Rx Instructions: As directed (DME) lancets 26 gauge misc See Rx Instructions .Route Qty: 100 2RF Rx Instructions: As directed (DME) pen needle, diabetic 31 gauge x 5/16 needle See Rx Instructions .Route Qty: 200 2RF Rx Instructions: As directed for use with insulin pens Visit Report/Discharge Packet Stand Alone Forms: Patient Portal/API, Stroke Signs & Symptoms Quality VTE Deep Vein Thrombosis/Pulmonary Embolism Present on Admission: No
--- NOTE | 2023-12-18 16:27 | DIET.PN1 ---
Dietary Progress Note/Diabetes Education Assessment: 23 y/oF with T1DM. Limited time to chat as she was discharging. States she plans to see endo tomorrow. Has Dexcom sensors ordered and can cloth picker later today. Denies any questions at this time. Ht: 157.48 cm Wt: 54.431 kg BMI: 21.9 Diet: 12/17/23 Dinner Carbohydrate Consistent Diet Diet Modifications: Carbohydrate level: Medium (3 CHO) Reflex DM orders: No Food Texture: Level 7 - Regular Liquid Consistency: Level 0 - Thin Electronically Signed by: Gabrielle Villavicencio 12/18/23 16:27 Clinical Dietitian, [address] [id number]
== END 2023-12-18 16:27 | disposition home or self-care (01) | DRG 919 ==
LOC: ED 10:19 → ICU 13:24 → AC 12-18 13:51
PROVIDERS: Admitting Provider Student in an Organized Health Care Education/Training Program; Emergency Provider Emergency Medicine; Referring Provider Emergency Medicine; Visit Provider Student in an Organized Health Care Education/Training Program
DX: T85.614A Breakdown (mechanical) of insulin pump, initial encounter (principal); E10.10 Type 1 diabetes mellitus with ketoacidosis without coma; T83.89XA Other specified complication of genitourinary prosthetic devices, implants and grafts, initial encounter
CPT/HCPCS: 36415; 76830; 76856; 80048; 80053; 81003; 81015; 81025; 82009; 82805; 82962; 83605; 83690; 83735; 84100; 84145; 85025; 87070; 87147; 87205; 87210; 87220; 87252; 87491; 87591; 96365; 96366; 96375; 99284; 99291; J1815; J2405; J7121